=== PATIENT | female | born 1950 | race Caucasian/White ===

== ENCOUNTER → 2024-01-20 11:51 | Outpatient (REF) | payer MEDICARE, BC, SELFPAY | LOC: HWWDC 11:51 | PROVIDERS: ATTENDING PHYSICIAN Nurse Practitioner Family; FAMILY PHYSICIAN Internal Medicine | DX: Z12.31 Encounter for screening mammogram for malignant neoplasm of breast (principal) | CPT/HCPCS: 77063; 77067 ==

== ENCOUNTER → 2024-01-31 16:40 | Outpatient (REF) | payer MEDICARE, BC, SELFPAY | LOC: RAD 16:40 | PROVIDERS: ATTENDING PHYSICIAN Family Medicine; OTHER PHYSICIAN Internal Medicine Hematology & Oncology | DX: R79.89 Other specified abnormal findings of blood chemistry (principal); R06.02 Shortness of breath | CPT/HCPCS: 93970 ==

== ENCOUNTER → 2024-02-13 10:27 | Outpatient (REF) | payer MEDICARE, BC, SELFPAY | LOC: HWRCS 10:27 | PROVIDERS: ATTENDING PHYSICIAN Family Medicine | DX: R01.1 Cardiac murmur, unspecified (principal); M79.89 Other specified soft tissue disorders | CPT/HCPCS: 93005; 93306 ==

== ENCOUNTER 2024-09-03 07:56 | Emergency (ER) | payer MEDICARE, BC, SELFPAY ==
[2024-09-03] VITALS (7 sets, daily range): BP systolic 115–130; BP diastolic 70–83; BMI 25.8
--- NOTE | 2024-09-03 08:00 | ED.GENMED ---
History of Present Illness
General
Chief Complaint: Back Pain
Source: patient and ambulance crew
Exam Limitations: none
Time Seen by Provider: 09/03/24 07:59
History of Present Illness
History of Present Illness:
See MDM
Past History
Past History
ED Past Medical History: Cancer (lung) and HTN
ED Past Surgical History: Gynecological
Social History
Tobacco: Non-smoker
Alcohol: None
Phy Exam
Physical Exam
Physical Exam:
See MDM
Course
Orders/Labs/Results
Orders:
Orders
09/03/24 07:59
Diazepam [Valium] 5 mg PO NOW STA
09/03/24 08:00
CT Abd/pel Without Iv Or Oral Urgent
Comment:
Reason For Exam: left flank pain
Urinalysis Reflex To Culture Urgent
09/03/24 08:50
CT Chest With Iv Contrast Urgent
Comment:
Reason For Exam: flank pain, eval pleural effusion
Morphine Sulfate 4 mg IV NOW STA
09/03/24 09:05
Complete Blood Count/With Diff Urgent
Comprehensive Metabolic Panel Urgent
Manual Differential Urgent
09/03/24 10:35
Morphine Sulfate 4 mg IV NOW STA
09/03/24 12:03
Oxycodone/Acetaminophen [Percocet 5/325] 1 tablet PO NOW STA
Abnormal Lab Results
09/03/24
09:05
WBC 20.0 H 10^3/uL
(4.8-10.8)
RBC 3.88 L 10^6/uL
(4.20-5.40)
MCH 32.7 H pg
(27.0-31.0)
RDW 17.0 H %
(11.5-14.5)
Abs Neuts (Manual) 11.4 H 10^3/uL
(1.4-6.5)
Glucose 114 H mg/dl
(70-99)
09/03/24 09:05
09/03/24 09:05
Vital Signs
Initial and Last Documented VS:
Initial Vital Signs
BP Pulse Ox
128/83 98
09/03/24 08:03 09/03/24 08:03
Last Documented Vital Signs
Temp Pulse Resp BP Pulse Ox
98.0 F 82 18 118/70 95
09/03/24 08:04 09/03/24 08:04 09/03/24 08:04 09/03/24 10:38 09/03/24 10:38
MDM/Problems Addressed
Differential Diagnosis Includes:
HPI and MDM Narrative:
73-year-old female presenting with left flank pain. Patient states she was diagnosed with a muscle spasm and her PCP prescribed muscle relaxants. This has been getting worse over the past 24 hours or so. Per patient, her PCP was urging her to get
x-rays. Patient states the muscle relaxant is not helping. EMS stating that patient was able to ambulate on scene. Patient denies radiation into her legs. She denies abdominal pain. Although exam is consistent with likely spasm, will obtain CT
to rule out any sort of kidney stone or other intra-abdominal pathology. Patient given oral Valium
Physical exam
General: Mildly uncomfortable
HEENT: protecting airway
Neck: appears supple
CV: No evidence of cyanosis
Resp: No accessory muscle use
Abd: Non-distended and nontender
Back: Spastic musculature to left paralumbar musculature. No rash
Extremities: No deformities
Neuro: alert
Psych: Normal affect
Skin: Intact
Problems Addressed including Acute and Chronic Conditions affecting care:
1. Left flank
Acuity: acute
Prognosis: stable
Details: Likely in the setting of spasm. Will give Valium given that her muscle relaxants at home were not helping. Will obtain CT to rule out intra-abdominal pathology
Updates
CT abdomen/pelvis shows no acute abnormalities to explain her pain. However, there was concern for empyema. CT chest was performed showing pleural thickening. Although infection cannot be ruled out, patient does have a history of lung cancer and
daughter is at bedside state that her pleural effusion is chronic. She has a white blood cell count elevation but is afebrile. Family states that she does get Neupogen shots during chemo. I do doubt empyema given no fevers and her immunocompromise
state. Family does agree with this assessment and also indicated that they no longer want thoracentesis. She has had them multiple times before and were told that she has loculations that cannot be drained
Differential Diagnosis (but not limited to): Kidney stone, muscle spasm, sciatica
Testing considered: Lumbar x-rays
Drug therapy (if applicable): OTC meds, please see d/c instruction regarding Rx drugs
Amount and/or Complexity of Data Reviewed
Clinical info obtained from: Patient. Daughters at bedside indicate history of chronic pleural effusion due to active lung cancer
External data reviewed: N/A
Labs I independently reviewed (but not limited to): Leukocytosis
Radiology: The CT scan was personally and independently reviewed. In addition, official CT report reviewed.
Pulse Ox: not hypoxic
EKG independently reviewed: N/A
Cable Ferryboat Operator: N/A
Critical Care: N/A
Risk of Complication:
Social Determinants of health: Good social support
Discussed with other providers: N/A
Escalation of Care includes Admit/Obs: After being observed in the Emergency Department, pt stable for discharge.
Occasional wrong word or 'sound a like' substitutions may have occurred due to the inherent limitations of voice recognition software. Read the chart carefully and recognize, using context, where substitutions have occurred.
*Critical Care Note
Total Time (30-74mins, 75-104mins- exclusive of procedures): Not Applicable
ED Attending Note
-
Portions of this chart may have been created with voice recognition software.� Occasional wrong word or��sound alike� substitutions may have occurred due to the inherent limitations of voice recognition software.
Discharge Plan
Departure
Patient Disposition: Home (Routine Discharge)
Date of Disposition: 09/03/24
Time of Disposition: 12:05
Patient with high blood pressure during this ER visit?: No
Discharge Problem:
Back pain, Pleural effusion
Prescriptions:
New
ondansetron 4 mg Tablet,Disintegrating
4 mg PO BIDPRN PRN (Reason: nausea/vomiting) Qty: 10 0RF
oxycodone 5 mg tablet
5 mg PO Q8H PRN (Reason: Pain) Qty: 14 0RF
No Action
spironolactone 25 mg Tablet
25 mg PO DAILY
metoprolol tartrate 25 mg Tablet
25 mg PO DAILY
Patient Comments:
Pt takes at night
alprazolam [Xanax] 0.5 mg Tablet
0.5 mg PO HS PRN (Reason: anxitey )
Referrals:
Lesly Chavez DO [Family Provider] -
Activity Restrictions/Additional Instructions:
Please return for any worsening symptoms.
You may return at any time if you have further concerns.
Please follow up with your doctor at the first available appointment, preferably this week.
You were given a prescription for narcotics. If you require this pain medicine, please take a daily [id number] stool softener to avoid constipation.
Thank you for choosing [facility].
Interventions
Interventions:
*Risk Screen - Suicide Last Done: 09/03/24 08:09
*General Assessment Last Done: 09/03/24 08:09
*Neglect/Abuse Screening Last Done: 09/03/24 08:09
*ED COVID-19 Vaccine History Last Done: 09/03/24 08:04
ED-Musculoskeletal Assessment Last Done: 09/03/24 08:32
Discharge Date and Time
Print Language: LUXEMBOURGISH
[2024-09-03] MEDS: VALIUM 5 MG PO (08:08)
[2024-09-03] MEDS: MORPHINE SULFATE 4 MG IV ×2 (09:05→10:42)
[2024-09-03 09:28] LABS: ALT (SGPT) 15 U/L (0-35); AST (SGOT) 20 U/L (14-36); Albumin 3.7 g/dl (3.5-5.0); Alkaline Phosphatase 90 U/L (38-126); Blood Urea Nitrogen 13 mg/dl (7-17); Calcium 9.3 mg/dl (8.4-10.2); Carbon Dioxide 30 mmol/L (22-30); Chloride 103 mmol/L (98-107); Estimated Creatinine Clearance 82 ml/min; Glucose 114 mg/dl (70-99); Potassium 4.6 mmol/L (3.5-5.1); Sodium 138 mmol/L (135-145); Total Bilirubin 0.2 mg/dl (0.2-1.3); Total Protein 7.1 g/dl (6.3-8.2); eGFR > 60.00
[2024-09-03 09:43] LABS: Hematocrit 38.1 % (37.0-47.0); Hemoglobin 12.7 g/dL (12.0-16.0); Mean Corp Hgb Conc. 33.3 g/dL (33.0-37.0); Mean Corpuscular Hgb 32.7 pg (27.0-31.0); Mean Corpuscular Volume 98.2 fL (81.0-99.0); Mean Platelet Volume 9.4 fL (7.4-10.4); Platelet Count 214 10^3/uL (130-400); Red Blood Cell Count 3.88 10^6/uL (4.20-5.40)
[2024-09-03 10:15] LABS: Absolute Neutrophils -Man Diff 11.4 10^3/uL (1.4-6.5); Band Neutrophils 2 % (0-3); Eosinophils 6 % (0-6); Lymphocytes 31 % (20-51); Monocytes 6 % (2-9); Segmented Neutrophils 55 % (42-75)
[2024-09-03 10:16] LABS: Normal RBC Morphology Yes; Platelets Checked Yes; Total Cells Counted 100
== END 2024-09-03 12:42 | disposition home or self-care (01) ==
LOC: EMR 07:56
PROVIDERS: EMERGENCY PHYSICIAN Student in an Organized Health Care Education/Training Program; FAMILY PHYSICIAN Family Medicine
DX: J90 Pleural effusion, not elsewhere classified (principal); M54.9 Dorsalgia, unspecified; I10 Essential (primary) hypertension
CPT/HCPCS: 99284; 96374; 96376; 71260; 74176; 80053; 85025; Q9967

== ENCOUNTER 2024-09-22 12:11 | Inpatient (IN) | payer MEDICARE, BC, SELFPAY ==
[2024-09-22] VITALS (11 sets, daily range): BP systolic 103–154; BP diastolic 63–97; BMI 24.8; BMI 24.6
--- NOTE | 2024-09-22 08:23 | ED.GENMED ---
History of Present Illness
<Shelia Floyd, VERTICAL PUNCH OPERATOR - Last Filed: 09/22/24 15:52>
General
Chief Complaint: Breathing Problem
Source: patient and family (daughter at bedside)
Exam Limitations: none
Time Seen by Provider: 09/22/24 08:22
Nursing documentation reviewed up to this point in time: agreed with
History of Present Illness
History of Present Illness:
73-year-old female with history of lung cancer currently receiving chemotherapy at [facility], hx lung scarring from radiation/chemo/immunotherapy, HTN, hysterectomy UTIs, anxiety, lung resection, presents for 3 days of worsening SOB and cough, today
fever 102 at home. Denies n/v/d/c.
Daughters arrived: Pt last Tylenol was last night. Pt saw PCP Dr. Chavez 2 days ago and put on Doxycycline 100 mg BID, for bronchitis, has had total 5 doses.
One week ago pt oncologist put her on Dexamethasone 8 mg daily x 1 week for gout left MCP joint, then decreased it to 4 mg daily which she took for 2 days, then stopped it at request of PCP. Last dose was 2 days ago
Thumb joint pain is improved.
Past History
<Shelia Floyd, VERTICAL PUNCH OPERATOR - Last Filed: 09/22/24 15:52>
Past History
ED Past Medical History: Cancer (lung) and HTN
ED Past Surgical History: Gynecological
Social History
Tobacco: Non-smoker
Alcohol: None
Review of Systems
<Shelia Floyd, VERTICAL PUNCH OPERATOR - Last Filed: 09/22/24 15:52>
Review of Systems
Allergies reviewed?: Yes
All Other Systems: ROS reviewed and negative except as documented in HPI and ROS
Constitutional: Reports fever and fatigue
Respiratory: Reports cough and trouble breathing
Cardiac: Denies chest pain
ABD/GI: Denies abdominal pain, nausea, vomiting or diarrhea
: Denies dysuria, frequency, flank pain or difficulty voiding
Musculoskeletal: Denies edema
Skin: Reports no symptoms
Neurological: Reports no symptoms
Phy Exam
<Shelia Floyd, VERTICAL PUNCH OPERATOR - Last Filed: 09/22/24 15:52>
Physical Exam
Physical Exam:
GENERAL: No acute distress. A&Ox3.
CONSTITUTIONAL: Temp 102.2
EYES: clear, conjunctivae normal
ENMT: moist mucus membranes, Pharynx nl
RESPIRATORY: Regular respirations, nonlabored, lungs with rhonchi throughout, persistent coarse junky cough
CARDIOVASCULAR: Regular rate and rhythm, no murmurs, no rubs.
GI: Soft, nontender, normal BS
MUSCULOSKELETAL: Moves with ease. Well perfused.
SKIN: Warm, dry, pink
PSYCH: Normal mood and affect. Well kept, interactive and appropriate
NEUROLOGIC: Awake, alert and oriented. No focal neurological deficits
Scores
<Shelia Floyd, VERTICAL PUNCH OPERATOR - Last Filed: 09/22/24 15:52>
Heart Failure Risk
Heart Failure Risk Score: Not Applicable
Sepsis
<Shelia Floyd, VERTICAL PUNCH OPERATOR - Last Filed: 09/22/24 15:52>
Sepsis Screening
Sepsis Assessment: Sepsis
Sepsis Screen
Sepsis Screen: Sepsis
Date: 09/22/24
Time: 15:52
Course
<Shelia Floyd, VERTICAL PUNCH OPERATOR - Last Filed: 09/22/24 15:52>
Orders/Labs/Results
Orders:
Orders
09/22/24 08:31
CR Chest - 2 Views Urgent
Comment:
Reason For Exam: lung CA, cough fever
09/22/24 08:32
Ipratropium/Albuterol Sulfate [Duoneb] 3 ml INH R NOW STA
Ketorolac [Toradol] 15 mg IV NOW STA
09/22/24 08:33
Electrocardiogram (*1) Urgent
Reason for Study: Shortness of Breath
EKG- Treatment ONCE
09/22/24 08:35
0.9% Sodium Chloride 1000 ml [Nss] 1,000 ml IV BOLUS
09/22/24 08:38
Complete Blood Count/With Diff Urgent
Comprehensive Metabolic Panel Urgent
Lactic Acid Q4H
Comment: CANCEL 2nd LACTIC ACID IF 1st LACTIC ACID IS LESS THAN 2
Manual Differential Urgent
NT-proBNP Urgent
Troponin I Urgent
09/22/24 08:39
Blood Culture Q30M
DEANNA Source: Blood/Venous
Specimen Description:
09/22/24 08:43
Acetaminophen [Tylenol] 1,000 mg PO NOW STA
09/22/24 08:53
COVID-19 Antigen Urgent
Source: Nasal Swab
Blood Culture Q30M
DEANNA Source: Blood/Venous
Specimen Description:
Influenza A+B Rapid Molecular Urgent
DEANNA Source: Nasal Swab
Specimen Description:
09/22/24 10:26
Cefepime HCl [Maxipime] 2,000 mg IV NOW STA
09/22/24 10:28
Vancomycin [Vancocin] 2,000 mg 0.9% Sodium Chloride 500 ml [Nss] 500 ml IV NOW
09/22/24 11:11
CT Chest PE Study Stat
Comment:
Reason For Exam: hypoxic fever, hx of lung ca, eval PE vs post obst
09/22/24 11:12
Sputum Culture [Respiratory Culture/Gram Stain] Stat
DEANNA Source: Sputum
Specimen Description:
Date Specimen was Collected: 09/22/24
Time Specimen was Collected: 12:04
Rx Incentive Spirometry [RESP] Routine
Frequency: q1h while awake
Rx Pep / Acapela [RESP] Routine
09/22/24 11:34
Admit/Transfer Patient As Directed
Co-Sign Provider:
Level of Care: Inpatient admission
Assign to:: Telemetry
Physician / Group: Dinesh Rolon
Diagnosis: pneumonia
Reason for Telemetry: Other
Other Reason for Telemetry: sepsis
Date to Stop Telemetry: 09/24/24
Time to Stop Telemetry: 11:00
Reason for Hospitalization: pna, sepsis, requiring o2
Expected length of stay greater than two midnights?: Yes
ELOS- Estimated Length of Stay in days: 2
I certify the patient meets the requirements for IP care: Yes
PRN Pain Medication Management As Directed
May give lesser potent ordered pain med per pt: Yes
preference::
Protocol:: Medication orders for pain may be administered in a
manner that supports deferring to patient preference
when the pt is:
- Requesting an ordered lesser potent pain medication.
Least to most potent pain medications are defined
as: acetaminophen < NSAID < tramadol < opioids
(morphine, oxycodone, hydromorphone).
- Requesting a lesser dose of the same medication IF
ORDERED.
- Requesting a less intrusive route of administration
if both routes are prescribed by the provider (PO <
IV).
09/22/24 11:38
Code Status As Directed
Resuscitation Status: Do not resuscitate
Reached after discussion with pt or family/Healthcare POA: Yes
09/22/24 11:39
DNR Bracelet Application ONCE
09/22/24 11:41
Levalbuterol [Xopenex 1.25 mg Inhalant Solution] 1.25 mg INH R Q6HPRN PRN
Promethazine/Codeine [Phenergan with Codeine Syrup] 5 ml PO Q4HPRN PRN
09/22/24 12:05
Legionella Urinary Antigen Stat
DEANNA Source: Urine
Specimen Description:
Sputum Culture [Respiratory Culture/Gram Stain] Urgent
DEANNA Source: Sputum
Specimen Description:
Date Specimen was Collected: 09/22/24
Time Specimen was Collected: 11:16
Strep pneumoniae Antigen Stat
DEANNA Source: Urine
Specimen Description:
09/22/24 14:00
Piperacillin/Tazo 3.375 Gram [Zosyn] 3.375 gram in 50 ml IV Q6H
09/24/24 11:00
DC Protocol for Telemetry ONCE
Abnormal Lab Results
09/22/24
08:38
WBC 26.9 H 10^3/uL
(4.8-10.8)
RBC 3.71 L 10^6/uL
(4.20-5.40)
Hct 36.0 L %
(37.0-47.0)
MCH 33.2 H pg
(27.0-31.0)
RDW 16.8 H %
(11.5-14.5)
Segmented Neutrophils 9 L %
(42-75)
Monocytes (Manual) 60 H %
(2-9)
Sodium 131 L mmol/L
(135-145)
Chloride 95 L mmol/L
(98-107)
Glucose 118 H mg/dl
(70-99)
09/22/24 08:38
09/22/24 08:38
Vital Signs
Initial and Last Documented VS:
Initial Vital Signs
Temp Pulse Resp BP Pulse Ox
102.2 F H 114 30 140/93 93
09/22/24 08:15 09/22/24 08:15 09/22/24 08:15 09/22/24 08:15 09/22/24 08:15
Last Documented Vital Signs
Temp Pulse Resp BP Pulse Ox
102.2 F H 114 25 133/82 95
09/22/24 14:45 09/22/24 12:53 09/22/24 12:53 09/22/24 09:01 09/22/24 12:53
Floor Winder consulted with Physician
Floor Winder consulted with physician?: Yes
Name of Physician Consulted: Thee
<Alistair Kingston MD - Last Filed: 09/22/24 10:33>
Orders/Labs/Results
Orders:
Orders
09/22/24 08:31
CR Chest - 2 Views Urgent
Comment:
Reason For Exam: lung CA, cough fever
09/22/24 08:32
Ipratropium/Albuterol Sulfate [Duoneb] 3 ml INH R NOW STA
Ketorolac [Toradol] 15 mg IV NOW STA
09/22/24 08:33
Electrocardiogram (*1) Urgent
Reason for Study: Shortness of Breath
EKG- Treatment ONCE
09/22/24 08:35
0.9% Sodium Chloride 1000 ml [Nss] 1,000 ml IV BOLUS
09/22/24 08:38
Complete Blood Count/With Diff Urgent
Comprehensive Metabolic Panel Urgent
Lactic Acid Q4H
Comment: CANCEL 2nd LACTIC ACID IF 1st LACTIC ACID IS LESS THAN 2
Manual Differential Urgent
NT-proBNP Urgent
Troponin I Urgent
09/22/24 08:39
Blood Culture Q30M
DEANNA Source: Blood/Venous
Specimen Description:
09/22/24 08:43
Acetaminophen [Tylenol] 1,000 mg PO NOW STA
09/22/24 08:53
COVID-19 Antigen Urgent
Source: Nasal Swab
Blood Culture Q30M
DEANNA Source: Blood/Venous
Specimen Description:
Influenza A+B Rapid Molecular Urgent
DEANNA Source: Nasal Swab
Specimen Description:
09/22/24 10:26
Cefepime HCl [Maxipime] 2,000 mg IV NOW STA
09/22/24 10:28
Vancomycin [Vancocin] 2,000 mg 0.9% Sodium Chloride 500 ml [Nss] 500 ml IV NOW
09/22/24 11:11
CT Chest PE Study Stat
Comment:
Reason For Exam: hypoxic fever, hx of lung ca, eval PE vs post obst
09/22/24 11:12
Sputum Culture [Respiratory Culture/Gram Stain] Stat
DEANNA Source: Sputum
Specimen Description:
Date Specimen was Collected: 09/22/24
Time Specimen was Collected: 12:04
Rx Incentive Spirometry [RESP] Routine
Frequency: q1h while awake
Rx Pep / Acapela [RESP] Routine
09/22/24 11:34
Admit/Transfer Patient As Directed
Co-Sign Provider:
Level of Care: Inpatient admission
Assign to:: Telemetry
Physician / Group: Dinesh Rolon
Diagnosis: pneumonia
Reason for Telemetry: Other
Other Reason for Telemetry: sepsis
Date to Stop Telemetry: 09/24/24
Time to Stop Telemetry: 11:00
Reason for Hospitalization: pna, sepsis, requiring o2
Expected length of stay greater than two midnights?: Yes
ELOS- Estimated Length of Stay in days: 2
I certify the patient meets the requirements for IP care: Yes
PRN Pain Medication Management As Directed
May give lesser potent ordered pain med per pt: Yes
preference::
Protocol:: Medication orders for pain may be administered in a
manner that supports deferring to patient preference
when the pt is:
- Requesting an ordered lesser potent pain medication.
Least to most potent pain medications are defined
as: acetaminophen < NSAID < tramadol < opioids
(morphine, oxycodone, hydromorphone).
- Requesting a lesser dose of the same medication IF
ORDERED.
- Requesting a less intrusive route of administration
if both routes are prescribed by the provider (PO <
IV).
09/22/24 11:38
Code Status As Directed
Resuscitation Status: Do not resuscitate
Reached after discussion with pt or family/Healthcare POA: Yes
09/22/24 11:39
DNR Bracelet Application ONCE
09/22/24 11:41
Levalbuterol [Xopenex 1.25 mg Inhalant Solution] 1.25 mg INH R Q6HPRN PRN
Promethazine/Codeine [Phenergan with Codeine Syrup] 5 ml PO Q4HPRN PRN
09/22/24 12:05
Legionella Urinary Antigen Stat
DEANNA Source: Urine
Specimen Description:
Sputum Culture [Respiratory Culture/Gram Stain] Urgent
DEANNA Source: Sputum
Specimen Description:
Date Specimen was Collected: 09/22/24
Time Specimen was Collected: 11:16
Strep pneumoniae Antigen Stat
DEANNA Source: Urine
Specimen Description:
09/22/24 14:00
Piperacillin/Tazo 3.375 Gram [Zosyn] 3.375 gram in 50 ml IV Q6H
09/24/24 11:00
DC Protocol for Telemetry ONCE
Abnormal Lab Results
09/22/24
08:38
WBC 26.9 H 10^3/uL
(4.8-10.8)
RBC 3.71 L 10^6/uL
(4.20-5.40)
Hct 36.0 L %
(37.0-47.0)
MCH 33.2 H pg
(27.0-31.0)
RDW 16.8 H %
(11.5-14.5)
Segmented Neutrophils 9 L %
(42-75)
Monocytes (Manual) 60 H %
(2-9)
Sodium 131 L mmol/L
(135-145)
Chloride 95 L mmol/L
(98-107)
Glucose 118 H mg/dl
(70-99)
09/22/24 08:38
09/22/24 08:38
Vital Signs
Initial and Last Documented VS:
Initial Vital Signs
Temp Pulse Resp BP Pulse Ox
102.2 F H 114 30 140/93 93
09/22/24 08:15 09/22/24 08:15 09/22/24 08:15 09/22/24 08:15 09/22/24 08:15
Last Documented Vital Signs
Temp Pulse Resp BP Pulse Ox
102.2 F H 114 25 133/82 95
09/22/24 14:45 09/22/24 12:53 09/22/24 12:53 09/22/24 09:01 09/22/24 12:53
<Shelia Floyd, VERTICAL PUNCH OPERATOR - Last Filed: 09/22/24 15:52>
MDM/Problems Addressed
Differential Diagnosis Includes:
PNA, CHF, SIRS, progression of lung CA
MDM/Problems Addressed:
73-year-old female with history of lung cancer currently receiving chemotherapy at [facility], hx lung scarring from radiation/chemo/immunotherapy, on home O2 PRN, has been using constantly past few days, HTN, hysterectomy UTIs, anxiety, lung
resection, presents for 3 days of worsening SOB and cough, today fever 102 at home. Denies n/v/d/c.
Daughters arrived: Pt last Tylenol was last night. Pt saw PCP Dr. Chavez 2 days ago and put on Doxycycline 100 mg BID for bronchitis, has had total 5 doses.
One week ago pt oncologist put her on Dexamethasone 8 mg daily x 1 week for gout left MCP joint, then decreased it to 4 mg daily which she took for 2 days, then stopped it at request of PCP. Last dose was 2 days ago
Thumb joint pain is improved.
Temp 102.2 po, HR 114, Pulse ox 94% on 4L [place]
9:45 AM:
CBC: WBC 26.9 (pt was on steroids for 10 days up until 2 days ago)
CMP: No clinically significant abnormality
COVID-negative
Flu negative
Troponin within normal limits
BNP WNL
10:25 a.m.
Chest x-ray radiology report read: FINDINGS:
Left perihilar opacity most in keeping with the patient's known lung cancer. Small left pleural effusion with adjacent left basilar parenchymal opacity. No pneumothorax. The cardiomediastinal silhouette is stable. Stable chronic compression
fractures of the midthoracic spine.
Plan: Admit: Lung cancer, pneumonia, left pleural effusion, failing outpatient antibiotics, SIRS
Blood cultures pending
Case discussed with Dr. Kingston who examined patient and agrees with plan
Hospitalist notified of admission
<Shelia Floyd VERTICAL PUNCH OPERATOR - Last Filed: 09/22/24 15:52>
*Critical Care Note
Total Time (30-74mins, 75-104mins- exclusive of procedures): Not Applicable
ED Attending Note
<Shelia Floyd VERTICAL PUNCH OPERATOR - Last Filed: 09/22/24 15:52>
-
Portions of this chart may have been created with voice recognition software.� Occasional wrong word or��sound alike� substitutions may have occurred due to the inherent limitations of voice recognition software.
<Alistair Kingston MD - Last Filed: 09/22/24 10:33>
ED Attending Note
Patient seen and examined by attending physician: Yes
ED Attending Note:
I have seen and evaluated the patient with a [id number] encounter. I have spoken to the advance practicer provider and involved in the medical history, the physical exam, medical decision making.
Evaluation and management service: agree unless noted differently below.
Results interpretation: agree unless noted differently below.
Focused HPI: 73-year-old female with history as noted significant for lung cancer currently receiving chemotherapy at [facility] who presents to the ER for worsening cough and shortness of breath. She says she has been coughing and having increasing
shortness of breath over the past 3 to 4 days. She says cough is productive of white to yellow sputum. She has associated fever and chills. She has been on doxycycline prescribed as an outpatient for the past few days but has not noticed any
improvement and so came to the ER.
Physical exam: Tachycardic, tachypneic, febrile; she is on 2 L of oxygen�wears as needed oxygen at home. Saturation 94%. Normotensive. She has scattered wheezing, diminished at the lung bases.
Medical Decision Makin-year-old female presents for evaluation of worsening cough and shortness of breath, fever in the setting of recent treatment for lung cancer. Not improving with outpatient doxycycline. Vitals and exam as above. Her
labs were significant for leukocytosis to 26.9. CMP no clinically significant abnormalities. Blood culture sent off. Will send sputum cultures. COVID and flu were negative. Chest x-ray was concerning for pneumonia. Treat with antibiotics.
Admit for continued treatment.
Discharge Plan
Departure
Patient Disposition: Admit
Date of Disposition: 09/22/24
Time of Disposition: 10:30
Admit to: Med/Surg
Presentation/result/management discussed w/ accepting MD/DO: Hospitalist
Condition: Fair
Covid-19: Negative COVID-19
Discharge Problem:
Lung cancer, Pneumonia, SIRS (systemic inflammatory response syndrome)
Interventions
Interventions:
*Risk Screen - Suicide Last Done: 09/22/24 08:15
*General Assessment Last Done: 09/22/24 08:15
*Neglect/Abuse Screening Last Done: 09/22/24 08:15
ED- Fall Risk Assessment Last Done: 09/22/24 09:04
*ED COVID-19 Vaccine History Last Done: 09/22/24 08:15
ED- Cardiac Assessment Last Done: 09/22/24 09:04
ED- Pulmonary Assessment Last Done: 09/22/24 09:04
[2024-09-22] MEDS: TYLENOL 1000 MG PO (08:45)
[2024-09-22] MEDS: DUONEB 3 ML INH (08:46)
[2024-09-22] MEDS: NSS 1000 IV (08:50)
[2024-09-22 09:13] LABS: ALT (SGPT) 24 U/L (0-35); AST (SGOT) 21 U/L (14-36); Albumin 3.9 g/dl (3.5-5.0); Alkaline Phosphatase 84 U/L (38-126); Blood Urea Nitrogen 15 mg/dl (7-17); Calcium 9.4 mg/dl (8.4-10.2); Carbon Dioxide 27 mmol/L (22-30); Chloride 95 mmol/L (98-107); Estimated Creatinine Clearance 82 ml/min; Glucose 118 mg/dl (70-99); Potassium 4.3 mmol/L (3.5-5.1); Sodium 131 mmol/L (135-145); Total Bilirubin 0.5 mg/dl (0.2-1.3); Total Protein 6.9 g/dl (6.3-8.2); eGFR > 60.00
[2024-09-22 09:18] LABS: Lactic Acid 1.7 mmol/L (0.7-2.0)
[2024-09-22 09:26] LABS: NT-proBNP 431 pg/ml; Troponin I < 0.012 ng/ml
[2024-09-22 09:27] LABS: COVID-19 Antigen Negative (Negative)
[2024-09-22 09:50] LABS: Hemoglobin 12.3 g/dL (12.0-16.0); Mean Corp Hgb Conc. 34.2 g/dL (33.0-37.0); Mean Corpuscular Hgb 33.2 pg (27.0-31.0); Mean Platelet Volume 9.3 fL (7.4-10.4); Platelet Count 188 10^3/uL (130-400); Red Blood Cell Count 3.71 10^6/uL (4.20-5.40); Red Cell Dist. Width 16.8 % (11.5-14.5); White Blood Cell Count 26.9 10^3/uL (4.8-10.8)
[2024-09-22 10:21] LABS: Absolute Neutrophils -Man Diff 2.6 10^3/uL (1.4-6.5); Atypical Lymphocytes 1 %; Band Neutrophils 1 % (0-3); Lymphocytes 26 % (20-51); Metamyelocytes 3 % (-); Monocytes 60 % (2-9); Platelets Checked Yes; Segmented Neutrophils 9 % (42-75)
[2024-09-22 10:22] LABS: Normal RBC Morphology Yes; Total Cells Counted 100
[2024-09-22] MEDS: MAXIPIME 2000 MG IV (10:38)
[2024-09-22] MEDS: VANCOCIN 540 MG IV (10:57)
--- NOTE | 2024-09-22 12:28 | PHA.VAN.IN ---
Assessment
- Assessment
Renal Function: Unknown baseline
Maximum Temperature: 102.2
Concomitant Antimicrobials: Piperacillin-tazobactam
AUC Dosing Plan
- Dosing Variables
Dosing Weight (kg): 73.9
Dosing CrCl (ml/min): 82
Vd coefficient (L/kg): 0.7
- Empiric Dosing
Initial / Loading Dose: Vanc 2000mg--3 at 1057
Maintenance Regimen: Vanc 1000mg IV x36J--gsejs at 1800
Estimated AUC (mcg*h/mL): 552.91
Estimated Peak (mcg*h/mL): 33.28
Estimated Trough (mcg/ml): 15
Estimated Half Life (H): 9.5
- Monitoring
No levels ordered at this time: Consider levels after 09/23 1800 dose
Pharmacokinetics Vancomycin I
- -
Patient Age: 73
Patient Sex: Female
Vancomycin Day #: 1
Indication: Pulmonary/Respiratory
Requesting Provider: Gonzales
Height / Weight:
Height 5 ft 8 in
Actual Weight 73.9 kg
IBW in k.9
Adjusted BW in k.9
Pertinent Past Medical History: Hx of lung CA; Chemo [place]; outpt Doxy 100mg bid--5 doses
- Vital Signs / Lab Results
Temp Pulse Resp BP Pulse Ox
102.2 F H 122 29 133/82 95
09/22/24 08:15 09/22/24 09:30 09/22/24 09:30 09/22/24 09:01 09/22/24 09:30
Lab Results - Hematology
09/22/24
08:38
WBC 26.9 H
Band Neutrophils 1
Lab Results - Chemistry
09/22/24
08:38
BUN 15
Creatinine 0.6
Estimated Creat Clear 82
Albumin 3.9
09/22/24 09/22/24
08:38 12:45
Lactic Acid 1.7 Cancelled
Microbiology Results
09/22/24 12:05 Legionella Urinary Antigen - Final
Urine Negative for Legionella pneumophila Serogroup 1 antigen.
A negative result does not rule out the possiblity of
Legionella infection due to other serogroups or species of
Legionella. Clinical correlation is recommended.
Streptococcus pneumoniae Antigen (M - Final
Negative for Streptococcus pneumoniae antigen.
A negative result does not exclude infection with
Streptococcus pneumoniae. Clinical correlation is
recommended.
09/22/24 08:53 Influenza Types A & B (LUIS) - Final
Nasal Swab Negative for Influenza A & B, NAAT
Negative results must be combined with clinical observations
and patient history.
Nucleic Acid Amplification test (NAAT)performed on the
[employer] platform.
[2024-09-22] MEDS: PHENERGAN WITH CODEINE SYRUP 5 ML PO ×2 (12:35→23:32)
[2024-09-22] MEDS: MOTRIN 400 MG PO (13:43)
--- NOTE | 2024-09-22 13:57 | HPS.HSE ---
Family Physician
-
Family Physician: Lesly Chavez
Chief Complaint
-
sob, cough
History of Present Illness
73 female history of lung cancer undergoing active chemotherapy at [facility] with known history of lung scarring (uses home o2 intermittently) from radiation/chemo/immunotherapy who presents with a 3-day history of worsening shortness of breath
cough fever of 102. States that the cough has become so bad it does not let her sleep has affected her eating. It is a wet chesty cough however she is not able to bring it up. Should be noted she has been on doxycycline 100 mg twice a day for the
past 4 days for treatment of bronchitis.
Former smoker, does not drink alcohol no drug use history
Past medical history as above
Past surgical history hysterectomy, lung resection
-Continue PPI
Medical History
Past Medical History
Past Medical History: Reports Cancer
Past Surgical History: Reports Gynocological
Social History
Unable to obtain full social history at this time due to: Other
Tobacco: Former Smoker
Alcohol: None
Drug: None
Family History
Family History: Not pertinent
Allergies / Home Medications
Allergies reflects when Allergies were last updated in [facility].
Home Medications with original date entered in [facility]
Allergy/Medication List:
Allergies
Allergy/AdvReac Type Severity Reaction Status Date / Time
No Known Allergies Allergy Verified 05/07/23 18:15
Home Medications
spironolactone 25 mg tablet 50 mg PO HS Blood Pressure 05/07/23
ondansetron 4 mg disintegrating tablet 4 mg PO BIDPRN PRN nausea/vomiting #10 tabs 09/03/24
doxycycline hyclate 100 mg capsule 100 mg PO BID 09/22/24
famotidine 20 mg tablet (Pepcid) 20 mg PO DAILYPRN PRN gerd 09/22/24
folic acid 1 mg tablet 1 mg PO DAILY 03/01/25
metoprolol succinate 25 mg tablet,extended release 24 hr (Toprol XL) 25 mg PO HS 09/22/24
Review of Systems
-
A 12 point ROS was completed and negative except as noted: Yes
Physical Exam
Vital Signs
Vital Signs
Temp Pulse Resp BP Pulse Ox
101.9 F H 114 25 133/82 95
09/22/24 12:56 09/22/24 12:53 09/22/24 12:53 09/22/24 09:01 09/22/24 12:53
Physical Exam
General: Well Developed
Laboratory Results
-
09/22/24 08:38
09/22/24 08:38
Laboratory Results
Lactic Acid Cancelled 09/22/24 12:45
Total Bilirubin 0.5 mg/dl (0.2-1.3) 09/22/24 08:38
AST 21 U/L (14-36) 09/22/24 08:38
ALT 24 U/L (0-35) 09/22/24 08:38
Alkaline Phosphatase 84 U/L (38-126) 09/22/24 08:38
Troponin I < 0.012 ng/ml 09/22/24 08:38
Impression/Plan
-
NAD
Scleral Anicteric
MMM
No JVD
Diminished breath sounds left lower base. Rhonchi worse on the left side than the right side, right apical clear
Regular but tachycardic, S1/S2
Soft, NT, ND, BS+
Warm, Dry
AAOx3
Acute on chronic respiratory failure likely secondary to sepsis from pneumonia. Question as this is a postobstructive pneumonia or empyema/parapneumonic effusion. If failed outpatient antibiotic therapy with doxycycline.
-Wean oxygen as tolerated
-Acapella
-Incentive spirometer
-Sputum cx
-Legionella/Strep pneumo
-Antitussive (Prometh with Codine)
-Mucinex
-Vancomycin Zosyn in order to cover for anaerobic coverage
-CT PE study ordered
-Bcx ordered
-Monitor on tele
Left sided pleural effusion
-?Tap, but daughter has stated it has been there for some time
-Consult IR for potential dx thora
Lung Ca
-Outpatient Onc follow up
HTN
-Continue antihypertensive
Gerd
-PPI
DNR/DNI
[2024-09-22] MEDS: MAALOX PLUS 1 TABLET PO (13:58)
--- NOTE | 2024-09-22 14:07 | EDRN ---
Communicated with dr. Rolon via [facility] [facility]. Pt's family concerned about pt's condition not improving even after multiple attempts with medications to help with cough and reflux. Dr. Rolon is aware that the family would like to have someone go over
the ct scan results. Pulmonary and ID were also consulted.
[2024-09-22] MEDS: TYLENOL 650 MG PO (14:24)
[2024-09-22] MEDS: MUCINEX 600 MG PO ×2 (14:26→20:12)
[2024-09-22] MEDS: ZOSYN 50 IV ×2 (14:37→21:32)
--- NOTE | 2024-09-22 17:33 | CON.PUL ---
Consultation
Consultation Request
Date/Time Consultation Requested: 09/22/2024 - 1353
Date/Time Consultation Performed: 09/22/2024 - 1520
Requesting Provider: Dr. Rolon
Performing Provider: Dr. Sanchez
Reason for Consultation: Pleural effusion/Fever/SOB
Medical History
-
Chief Complaint: Shortness of breath + cough
History of Present Illness:
73-year-old female with a past medical history of metastatic lung cancer on chemotherapy who presents with worsening cough and shortness of breath. Patient is currently on antibiotics for bronchitis but is not improving. She is currently being
treated for her lung cancer at [facility]. She was recently here in the ER on 09/03/2024 due to back/left flank pain. White count that time was 20. She was afebrile at that time. Patient thought it was a muscle spasm, and that is
when she was diagnosed with. She was given Valium, and given a prescription for Zofran + oxycodone. CT chest obtained on 09/03/2024 showed abnormal soft tissue attenuation thickening in the left upper lobe/left lower lobe with a 1.5 cm left upper
lobe nodule, all of this correlating with her history of lung cancer with history of XRT. There also was a left basilar pleural effusion with surrounding pleural thickening which was previously seen on an abdominal CT from the same day. Infected
fluid collection was unable to be excluded at the time. She is now having worsening shortness of breath and cough. Has some middle chest tightness and feels like she gets full very early so it has been affecting her eating. She was in touch with
her physician 2 days prior and was placed onto doxycycline and has taken 5 doses thus far. She had a fever today to 102 �F. She is also having yellow sputum and sometimes dark brown. No recent sick contacts. She was recently on Decadron for gout
with last dose 2 days ago. In the ER she was febrile to 102.2 �F, pulse rate 114, respiratory rate 30, BP 140/93 and saturating 93% on room air. Labs showed leukocytosis to 26.9, 1% bands, serum sodium 131, lactate 1.7, proBNP 431, and COVID-19
antigen negative. Blood cultures were collected, and flu A/B swab was negative. CTA chest was done on 09/22/2024 showing no evidence for an acute PE, with irregular soft tissue encasing the left hilum with a small�moderate size left basilar pleural
effusion with diffuse pleural thickening, similar to prior CT chest from 09/03/2024. In the ER she was given 1 L NS 0.9%, cefepime/vancomycin, DuoNebs and Tylenol. She was admitted to the hospitalist service under telemetry, and pulmonary service
now consulted for additional management/recommendations.
When I saw the patient, she was in bed, on 3 L/min nasal cannula with her daughter, Christina, at bedside. Patient currently does not feel good. She feels tired, has chest discomfort in the middle of her chest, and is short of breath during
activity. She says that her left-sided pleural effusion is chronic and she has had about 16 thoracentesis procedures at [facility]. She is on chemotherapy every 3 weeks, followed by Dr. Denny, at [facility] She originally was diagnosed
with lung cancer about 13 years ago while living in [place]. She moved here to [place] in March 2023, and it seems like her cancer has been worsening since then. She currently denies CHAVEZ, abdominal pain, nausea, or diarrhea.
PMHx: Metastatic lung cancer on active chemotherapy every 3 weeks for approximately the last year (follows at [facility] with a history of XRT/chemotherapy/immunotherapy (originally diagnosed 13 years ago with recurrence approximately 4 years ago),
hypertension, anxiety
PSHx: MAYITO, right upper lobectomy
Past Medical History
Past Medical History: Other (Above as per HPI)
Past Surgical History: Other (Above as per HPI)
Social History
Tobacco: Non-smoker
Alcohol: None
Drug: None
Living: With Family
Employment: Retired
Family History
Family History: Reviewed & Not Pertinent
Allergies / Home Medications
Allergies
Allergy/AdvReac Type Severity Reaction Status Date / Time
No Known Allergies Allergy Verified 10/14/23 18:15
Home Medications
�Medication �Instructions �Recorded �Confirmed �Last Taken �Type
spironolactone 25 mg tablet 50 mg PO HS Blood Pressure 05/07/23 09/22/24 09/21/24 History
ondansetron 4 mg disintegrating 4 mg PO BIDPRN PRN nausea/vomiting 09/03/24 09/22/24 Unknown Rx
tablet #10 tabs
doxycycline hyclate 100 mg capsule 100 mg PO BID 09/22/24 09/22/24 09/22/24 History
famotidine 20 mg tablet (Pepcid) 20 mg PO DAILYPRN PRN gerd 09/22/24 09/22/24 Unknown History
folic acid 1 mg tablet 1 mg PO DAILY 09/22/24 09/22/24 Unknown History
metoprolol succinate 25 mg 25 mg PO HS 09/22/24 09/22/24 09/21/24 History
tablet,extended release 24 hr
(Toprol XL)
Review of Systems
-
History Source: Patient
All other systems: Negative unless noted
Vitals / Labs / Diagnostic Testing
Vital Signs
Temp Pulse Resp BP Pulse Ox
98.2 F 88 20 133/74 96
09/22/24 20:05 09/22/24 20:05 09/22/24 20:05 09/22/24 20:05 09/22/24 20:05
Lab Data
09/22/24 08:38
09/22/24 08:38
Microbiology
09/22/24 12:05 Sputum Gram Stain - Preliminary
09/22/24 12:05 Urine Legionella Urinary Antigen - Final
Negative for Legionella pneumophila Serogroup 1 antigen.
A negative result does not rule out the possiblity of
Legionella infection due to other serogroups or species of
Legionella. Clinical correlation is recommended.
09/22/24 12:05 Urine Streptococcus pneumoniae Antigen (M - Final
Negative for Streptococcus pneumoniae antigen.
A negative result does not exclude infection with
Streptococcus pneumoniae. Clinical correlation is
recommended.
09/22/24 08:53 Nasal Swab Influenza Types A & B (LUIS) - Final
Negative for Influenza A & B, NAAT
Negative results must be combined with clinical observations
and patient history.
Nucleic Acid Amplification test (NAAT)performed on the
[employer] platform.
Diagnostic Testing:
Physical Exam
-
HEENT: Normocephalic and Anicteric
Cardiovascular: S1/S2 and Peripheral Edema (negative)
Respiratory: Wheeze (Mellette upon expiration bilaterally), Rales (Left base), Rhonchi (negative), Non-Labored Respirations and Other (Diminished breath sounds (L >R))
GI: Soft, Non Distended, Non Tender and Normal Bowel Sounds
Neurology: Awake, Alert and Tremors (negative)
Skin: Warm and Dry
General: Respiratory Distress (negative), Comfortable, Fever (negative) and Chills (negative)
Assessment
-
Assessment: 73-year-old female with a past medical history of metastatic lung cancer on chemotherapy with history of XRT/chemotherapy/immunotherapy, hypertension and anxiety who presents with worsening cough and shortness of breath. She was
recently on doxycycline for bronchitis but she was not improving so she came to the hospital. Imaging shows a left-sided pleural effusion with diffuse pleural thickening with an irregular soft tissue lesion encasing the left hilum, keeping with her
history of lung cancer. Also no evidence of an acute PE. Overall, CT chest is relatively similar to recent CT chest from 09/03/2024 when she was in the ER for left-sided flank/back pain. Here in the ER she was febrile to 102.2 �F, was tachypneic
and tachycardic. Labs show worsening leukocytosis compared to when she was recently here in the ER. She was started on antibiotics in the ER, given 1 L of normal saline and admitted to telemetry. Hospitalist service now consulting pulmonary for
additional management/recommendations.
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
years ago), hypertension, anxiety
Impression:
#Fevers, shortness of breath, and leukocytosis due to sepsis from suspected pneumonia with possible post-obstructive component from known L-sided perihilar lung cancer
#Left sided pleural effusion with surrounding pleural thickening- differential is empyema versus malignant effusion (patient says that she has had this effusion for years and has had many thoracenteses)
#Acute respiratory failure with hypoxia due to above
#Leukocytosis with monocytosis
#Hypochloremic, hyponatremia likely due to reduced PO intake with early satiety
#Metastatic lung cancer s/p chemo/XRT, currently on chemotherapy every 3 weeks for the past 1 year, per patient (they follow at [facility] + history of right upper lobectomy
#Hiatal hernia
Plan:
- Patient has a left lower lobe pleural effusion that the patient says is chronic, and evidence of a left perihilar lesion which correlates with her history of lung cancer
-I personally reviewed her CTA chest from 09/22/2024 and she has extrinsic compression of her left upper lobe bronchus + left lower lobe bronchus from this perihilar mass. There also appears to be a medial left lower lobe consolidation with
opacification in the left lower lobe and also other patchy opacities in the medial right lower lobe.
- According to the patient she has had 16 thoracentesis procedures at [facility]
- Given her elevated white count, immunocompromised state and fever, need to rule out empyema --> NPO p MN for thoracentesis tomorrow, possibly may need a chest tube
- Send off pleural fluid studies for tomorrow as well as cultures + cytopathology
- The patient and the daughter are amenable for a chest tube if needed, however they are not sure how aggressive they want to be given her history of lung malignancy
- For now I would continue treating her for a suspected pneumonia, possibly postobstructive
- ID currently on board, and patient on Zosyn/vancomycin
- Follow-up blood cultures, and respiratory cultures (all collected 09/22/2024)
- Trend WBC and monitor fever curve
- Maintain SpO2 >90-94% with supplemental oxygen and wean as tolerated
- Continue aspiration precautions
- Start DuoNebs QID with prn Xopenex
- Start Mucinex
- She also endorses a chest discomfort in the middle of her chest, and she does have a hiatal hernia, hence this could very well be gastroesophageal reflux
- She takes Pepcid at home and I will give her a one-time IV dose now, and then start her on 10 mg PO BID
- Continue to monitor her chest discomfort and if it worsens then need to check stat EKG with set of troponins with possible consult to cardiology
- What's encouraging is that her troponin is negative and her chest pain is atypical, hence doubt her chest pain is cardiac related
- Pain control
- Maintain MAP>65
- Replete electrolytes with K>4, Mg>2
- Maintain euglycemia with goal BG 140-180
- Trend H/H and transfuse if needed to keep Hb>7g/dL; keep plt>20k, unless there is concern for bleeding then keep plt>50k
- prn nebulized bronchodilators - not currently bronchospastic
- Incentive spirometer encouraged 10x per hour for at least 4 hrs a day
- PT/OT
- DVT ppx: LMWH
Code status: DNR/DNI
Pulmonary service will continue to follow along.
Data:
CTA chest 09/22/2024:
No CTA evidence for an acute pulmonary thromboembolism.
Irregular soft tissue encasing the left hilum most in keeping with the patient's known lung cancer and probable posttreatment related changes. Small to moderate left basilar pleural effusion with diffuse pleural thickening. Similar appearance
compared to the previous chest CT from 09/03/2024, but superimposed infection/empyema would be difficult to exclude.
(Patient seen and evaluated on 09/22/2024): Total time spent today was 58 minutes for this encounter. Time includes reviewing laboratory test/imaging results, reviewing pertinent medical records, obtaining and reviewing medical history, performing an
appropriate exam, ordering medications, tests and procedures. Time also includes documentation of this encounter, coordinating patient care and communicating with other healthcare professionals. Total time does not include separately billed tests
performed on this date of service.
--- NOTE | 2024-09-22 17:54 | CON.ID ---
Consultation
-
Date/Time Consultation Requested: 09/22/2024 1353
Date/Time Consultation Performed: 09/22/2024 1718
Requesting Provider: Dr. Rolon
Performing Provider: Dr. Perry
Reason for Consultation: Pneumonia
Chief Complaint / Past History
History of Present Illness
The patient is a 73-year-old female with a significant past medical history of lung cancer, currently on chemotherapy (Avastin, Alimta) q. 3 weeks at [facility]. She presents to the ER here at [facility] following 3 days of
increasing shortness of breath and unrelenting cough. She was in touch with her physician 2 days ago and was placed on doxycycline, and has taken 5 doses thus far, but her shortness of breath has worsened. She reports lack of sleep secondary to
cough. Today she developed a fever to 102 degrees.
She reports that her sputum was clear, but has now turned yellow. Today she also reports that she coughed up a dark brown clump. She denies any sick contacts. She reports that she recently was on dexamethasone for gout, but stopped the tapering
dose 2 days ago. She reportedly has had a leukocytosis for the past 3 weeks, and she did not receive Neulasta at her last infusion.
There are no pets in the house. She has not had any travel. There are no sick contacts.
Past History
Additional Past Medical History:
Lung cancer (on Avastin, Alimta)
HTN
Anxiety
Additional Past Surgical History:
MAYITO
Right upper lobe resection
Allergy History:
No Known Allergies Allergy (Verified 05/07/23 18:15)
Medications Reviewed: Yes
Current Antibiotics:
Vancomycin
Zosyn
Social History
Tobacco: Non-Smoker
Alcohol: None
Drug: None
Living: With Family
Employment: Retired
Family History
Family History: Not Pertinent
Review of Systems
Vital Signs
Temp Pulse Resp BP Pulse Ox
102.2 F H 114 25 133/82 95
09/22/24 14:45 09/22/24 12:53 09/22/24 12:53 09/22/24 09:01 09/22/24 12:53
Physical Exam
Physical Exam
Constitutional: No Acute Distress, Comfortable, Acutely Ill, Chronically Ill and Non-toxic
Eyes: Pupils Equal, No Conjunctival Hemorrhage and Sclera Anicteric
Oral: No Thrush and No Ulcers
Cardiovascular: S1/S2; Negative S3/S4
Pulmonary: Rhonchi (Throughout), Coarse and Non Labored
Gastrointestinal: Soft, Non Tender, Non Distended and Normal Bowel Sounds
Skin: Warm and Dry; Negative Rash or Jaundice
Neurological: Awake and Alert
Psychological: Calm
Lab / Diagnostic Study Results
09/22/24 08:38
09/22/24 08:38
Total Counted 100 09/22/24 08:38
Abs Neuts (Manual) 2.6 10^3/uL (1.4-6.5) 09/22/24 08:38
Segmented Neutrophils 9 % (42-75) L 09/22/24 08:38
Band Neutrophils 1 % (0-3) 09/22/24 08:38
Lymphocytes (Manual) 26 % (20-51) 09/22/24 08:38
Lactic Acid Cancelled 09/22/24 12:45
Microbiology Results
Micro:
09/22/24 12:05 Respiratory Culture - Pending
Sputum Gram Stain - Preliminary
09/22/24 12:05 Legionella Urinary Antigen - Final
Urine Negative for Legionella pneumophila Serogroup 1 antigen.
A negative result does not rule out the possiblity of
Legionella infection due to other serogroups or species of
Legionella. Clinical correlation is recommended.
Streptococcus pneumoniae Antigen (M - Final
Negative for Streptococcus pneumoniae antigen.
A negative result does not exclude infection with
Streptococcus pneumoniae. Clinical correlation is
recommended.
09/22/24 08:53 Influenza Types A & B (LUIS) - Final
Nasal Swab Negative for Influenza A & B, NAAT
Negative results must be combined with clinical observations
and patient history.
Nucleic Acid Amplification test (NAAT)performed on the
[employer] platform.
09/22/24 08:53 Blood Culture - Pending
Blood/Venous
09/22/24 08:39 Blood Culture - Pending
Blood/Venous
Imaging:
09/22/2024 CT chest: No CTA evidence for an acute pulmonary thromboembolism. Irregular soft tissue encasing the left hilum most in keeping with the patient's known lung cancer and probable posttreatment related changes. Small to moderate left
basilar pleural effusion with diffuse pleural thickening. Similar appearance compared to the previous chest CT from 09/03/2024, but superimposed infection/empyema would be difficult to exclude. Multiple other findings essentially unchanged from the
prior chest CT.
Assessment / Plan
Acute bronchitis +/- PNA
Shortness of breath
Fever
Leukocytosis ( ?acute vs chronic)
Lung cancer (on Avastin, Alimta)
HTN
Anxiety
Recommendations:
Continue with empiric vancomycin and Zosyn. Monitor Vanco levels to prevent nephrotoxicity
Sputum culture has been ordered and is pending.
Check respiratory viral panel.
Follow white count and temperature curve.
Follow pending blood cultures.
Monitor O2 sats.
Further recommendations as additional data is returned.
[2024-09-22] MEDS: LOVENOX 30 MG SC (20:11)
[2024-09-22] MEDS: VANCOCIN 200 IV (20:11)
--- NOTE | 2024-09-22 20:30 | PTCARENOTE ---
Pt arrived from ED to room 329 via stretcher. Pt able to walk to bed with staff assistance. Pt AAOx3 and able to make needs known. Oriented to room, call rivers within reach. With continue to monitor pt.
[2024-09-22] MEDS: LOPRESSOR 25 MG PO (21:32)
[2024-09-22] MEDS: ANESTHETIC LOZENGE 1 LOZENGE PO (21:32)
[2024-09-22] MEDS: MELATONIN 5 MG PO (21:32)
[2024-09-22] MEDS: PEPCID 20 MG IV (22:24)
[2024-09-22] MEDS: NSS (PRESERVATIVE FREE) 8 ML IV (22:24)
[2024-09-23] VITALS (7 sets, daily range): BP systolic 84–145; BP diastolic 60–91
[2024-09-23] MEDS: ZOSYN 50 IV ×4 (01:37→20:14)
[2024-09-23] MEDS: ANESTHETIC LOZENGE 1 LOZENGE PO ×3 (01:48→22:14)
[2024-09-23] MEDS: XOPENEX 1.25 MG INHALANT SOLUTION INH ×2 (02:35→13:09)
[2024-09-23] MEDS: PHENERGAN WITH CODEINE SYRUP 5 ML PO ×2 (04:31→12:07)
[2024-09-23] MEDS: VANCOCIN 200 IV ×2 (05:08→17:20)
[2024-09-23] MEDS: TYLENOL 650 MG PO ×3 (06:11→20:15)
[2024-09-23] MEDS: DUONEB 3 ML INH ×3 (07:29→19:25)
[2024-09-23] MEDS: MUCINEX 1200 MG PO ×2 (07:43→20:15)
[2024-09-23] MEDS: PEPCID 10 MG PO ×2 (07:43→20:20)
[2024-09-23] MEDS: ALDACTONE 50 MG PO (07:43)
[2024-09-23 08:23] LABS: LDH 221 U/L (120-246)
[2024-09-23 09:19] LABS: Hemoglobin 10.4 g/dL (12.0-16.0); Mean Corp Hgb Conc. 33.5 g/dL (33.0-37.0); Mean Corpuscular Hgb 33.1 pg (27.0-31.0); Mean Corpuscular Volume 98.7 fL (81.0-99.0); Mean Platelet Volume 9.7 fL (7.4-10.4); Platelet Count 147 10^3/uL (130-400); Red Blood Cell Count 3.14 10^6/uL (4.20-5.40); Red Cell Dist. Width 17.1 % (11.5-14.5); White Blood Cell Count 40.7 10^3/uL (4.8-10.8)
[2024-09-23 09:30] LABS: Blood Urea Nitrogen 9 mg/dl (7-17); Calcium 9.4 mg/dl (8.4-10.2); Carbon Dioxide 27 mmol/L (22-30); Chloride 98 mmol/L (98-107); Estimated Creatinine Clearance 82 ml/min; Glucose 109 mg/dl (70-99); Potassium 3.3 mmol/L (3.5-5.1); Sodium 132 mmol/L (135-145); eGFR > 60.00
--- NOTE | 2024-09-23 09:41 | PHA.VAN.FU ---
Vancomycin Assessment / Plan
- Assessment
Renal Function: Stable
WBC's are: Trending Up
In the past 24 hrs, patient has been: Febrile (Tmax = 102.2)
Concomitant Antimicrobials: Piperacillin-tazobactam
- Dosing Plan
Continue: Vanc 1000mg IV q12H
- Monitoring Plan
Peak Level: 3/2 at 2030
Trough Level: 3/3 at 0530
- Follow Up
Pharmacy will continue to follow.
Vancomycin Follow UP
- -
Patient Age: 73
Patient Sex: Female
Vancomycin Day #: 2
Indication: Pulmonary/Respiratory
Requesting Provider: Gonzales
Height / Weight:
Height 5 ft 8 in
Actual Weight 73.346 kg
IBW in k.9
Adjusted BW in k.9
Pertinent Past Medical History: Hx of lung CA; Chemo [place]; outpt Doxy 100mg bid--5 doses
- Vital Signs / Lab Results
Temp Pulse Resp BP Pulse Ox
98.3 F 86 18 116/71 96
09/23/24 07:00 09/23/24 07:31 09/23/24 07:31 09/23/24 07:00 09/23/24 07:31
Lab Results - Hematology
09/22/24 09/23/24
08:38 06:00
WBC 26.9 H 40.7 H*
Band Neutrophils 1
Lab Results - Chemistry
09/22/24 09/23/24 09/23/24
08:38 07:33 08:55
BUN 15 9 Cancelled
Creatinine 0.6 0.6 Cancelled
Estimated Creat Clear 82 82 Cancelled
Albumin 3.9
09/22/24 09/22/24
08:38 12:45
Lactic Acid 1.7 Cancelled
Microbiology Results
09/22/24 08:53 Blood Culture - Preliminary
Blood/Venous No Growth in 24 hours- Final report to follow
09/22/24 08:39 Blood Culture - Preliminary
Blood/Venous No Growth in 24 hours- Final report to follow
09/22/24 12:05 Gram Stain - Preliminary
Sputum
09/22/24 12:05 Legionella Urinary Antigen - Final
Urine Negative for Legionella pneumophila Serogroup 1 antigen.
A negative result does not rule out the possiblity of
Legionella infection due to other serogroups or species of
Legionella. Clinical correlation is recommended.
Streptococcus pneumoniae Antigen (M - Final
Negative for Streptococcus pneumoniae antigen.
A negative result does not exclude infection with
Streptococcus pneumoniae. Clinical correlation is
recommended.
09/22/24 08:53 Influenza Types A & B (LUIS) - Final
Nasal Swab Negative for Influenza A & B, NAAT
Negative results must be combined with clinical observations
and patient history.
Nucleic Acid Amplification test (NAAT)performed on the
[employer] platform.
[2024-09-23] MEDS: DUONEB INH ×2 (11:28→15:30)
--- NOTE | 2024-09-23 12:05 | W.PN.HOSP.TC ---
Today's Communication/Plan
-
IV antibiotics
Follow-up on fluid analysis blood culture sputum culture in [place] culture
Continue to follow ID and pulmonary recommendations
Supportive care for RSV
Assessment / Plan
Assessment / Plan
NAD
Scleral Anicteric
MMM
No JVD
Diminished breath sounds left lower base. Right lung lobes are clear
Regular but tachycardic, S1/S2
Soft, NT, ND, BS+
Warm, Dry
AAOx3
Acute on chronic respiratory failure likely secondary to sepsis from acute bronchitis plus minus pneumonia likely viral as RSV positive. Question as this is a postobstructive pneumonia or empyema/parapneumonic effusion. If failed outpatient
antibiotic therapy with doxycycline.
-Wean oxygen as tolerated
-Acapella
-Incentive spirometer
-Sputum cx
-Legionella/Strep pneumo
-Antitussive (Prometh with Codine)
-Mucinex
-Vancomycin Zosyn in order to cover for anaerobic coverage
-CT PE study ordered
-Bcx ordered
-Monitor on tele
-Start Nasal saline for post nasal drip
RSV positive
Supportive care
Left sided pleural effusion
-Follow-up on fluid analysis
Lung Ca
-Outpatient Onc follow up at [facility]
-She is considering transferring care to Oncology
-- She would like to be seen by our Oncology team, as this is a and she will still be here on Tuesday with follow-up for oncology to evaluate on a weekday
HTN
-Continue antihypertensive
Gerd
-PPI
DNR/DNI
Anticipated Discharge: 24 - 48 hours
Subjective/Interval History
-
Date of Service: September 23, 2024
seen and examined.
cough worse when laying back
improves with sitting forward and walking
-this is concerning for post nasal drip vs gerd
Objective Data
-
Labs:
Laboratory Results
09/23/24 09/23/24 09/23/24
06:00 07:33 08:55
WBC 40.7 H*
Hgb 10.4 L
Hct 31.0 L
Plt Count 147 D
Sodium 132 L Cancelled
Potassium 3.3 L Cancelled
Chloride 98 Cancelled
Carbon Dioxide 27 Cancelled
BUN 9 Cancelled
Creatinine 0.6 Cancelled
Glucose 109 H Cancelled
Calcium 9.4 Cancelled
Vital Signs:
Vital Signs
Temp Pulse Resp BP Pulse Ox
98.3 F 84 24 130/69 96
09/23/24 10:26 09/23/24 11:20 09/23/24 11:20 09/23/24 11:20 09/23/24 11:20
[2024-09-23 12:50] LABS: Body Fluid pH 7.07
--- NOTE | 2024-09-23 13:00 | W.PN.PUL3 ---
Today's Communication / Plan
-
Thoracentesis performed today showing 20 cc of dark bloody fluid, follow-up cultures + cytopathology
Mild improvement seen and post�thoracentesis CXR
Patient has RSV pneumonia and this is likely causing the bulk of her symptoms
Supportive care
DuoNebs + mucolytics
Anti-tussants prn
Supplemental O2 keeping SpO2 >90-94%
Check ambulatory pulse oximetry prior to discharge
Pulmonary service will continue to follow along
Assessment
-
Assessment: 73-year-old female with a past medical history of metastatic lung cancer on chemotherapy with history of XRT/chemotherapy/immunotherapy, hypertension and anxiety who presents with worsening cough and shortness of breath. She was
recently on doxycycline for bronchitis but she was not improving so she came to the hospital. Imaging shows a left-sided pleural effusion with diffuse pleural thickening with an irregular soft tissue lesion encasing the left hilum, keeping with her
history of lung cancer. Also no evidence of an acute PE. Overall, CT chest is relatively similar to recent CT chest from 09/03/2024 when she was in the ER for left-sided flank/back pain. Here in the ER she was febrile to 102.2 �F, was tachypneic
and tachycardic. Labs show worsening leukocytosis compared to when she was recently here in the ER. She was started on antibiotics in the ER, given 1 L of normal saline and admitted to telemetry. Hospitalist service now consulting pulmonary for
additional management/recommendations.
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
years ago), hypertension, anxiety
Impression:
#Fevers, shortness of breath, and leukocytosis due to sepsis from RSV pneumonia with possible post-obstructive PNA from known L-sided perihilar lung cancer
#Left sided complex pleural effusion with surrounding pleural thickening- suspected malignant effusion (patient says that she has had this effusion for years and has had many thoracenteses)
#Acute respiratory failure with hypoxia due to above
#Leukocytosis with monocytosis
#Hypochloremic, hyponatremia likely due to reduced PO intake with early satiety
#Metastatic lung cancer s/p chemo/XRT, currently on chemotherapy every 3 weeks for the past 1 year, per patient (they follow at [facility]) + history of right upper lobectomy
#Hiatal hernia
Plan:
- Patient has a left lower lobe pleural effusion that the patient says is chronic, and evidence of a left perihilar lesion which correlates with her history of lung cancer
- Dr. Sanchez personally reviewed her CTA chest from 09/22/2024 and she has extrinsic compression of her left upper lobe bronchus + left lower lobe bronchus from this perihilar mass. There also appears to be a medial left lower lobe consolidation
with opacification in the left lower lobe and also other patchy opacities in the medial right lower lobe.
- According to the patient she has had 16 thoracentesis procedures at [facility]
- Given her elevated white count, immunocompromised state and fever, need to rule out empyema --> no empyema seen on thoracentesis from 09/23/2024; 20cc of dark bloody fluid seen and sent for fluid studies; no chest tube needed at this time
- Follow up pleural fluid cultures + cytopathology from [facility] on 09/23
- For now continue treating her for a suspected pneumonia, possibly postobstructive
- ID currently on board, and patient on Zosyn/vancomycin
- Follow-up blood cultures, and respiratory cultures (all collected 09/22/2024)
- Trend WBC and monitor fever curve
- She is also positive for RSV on RV-panel, and this could be a large contributor to her current symptoms
- Continue supportive care
- Maintain SpO2 >90-94% with supplemental oxygen and wean as tolerated
- Continue aspiration precautions
- Continue DuoNebs QID with prn Xopenex
- Continue Mucinex
- Ambulatory pulse oximetry prior to discharge
- She also endorses a chest discomfort in the middle of her chest, and she does have a hiatal hernia, hence this could very well be gastroesophageal reflux
- She takes Pepcid at home --> continue pepcid 10 mg PO BID
- Continue to monitor her chest discomfort and if it worsens then need to check stat EKG with set of troponins with possible consult to cardiology
- What's encouraging is that her troponin is negative and her chest pain is atypical, hence doubt her chest pain is cardiac related
- Pain control
- Maintain MAP>65
- Replete electrolytes with K>4, Mg>2
- Maintain euglycemia with goal BG 140-180
- Trend H/H and transfuse if needed to keep Hb>7g/dL; keep plt>20k, unless there is concern for bleeding then keep plt>50k
- prn nebulized bronchodilators - not currently bronchospastic
- Incentive spirometer encouraged 10x per hour for at least 4 hrs a day
- PT/OT
- DVT ppx: LMWH
Code status: DNR/DNI
Pulmonary service will continue to follow along.
Data:
CTA chest 09/22/2024:
No CTA evidence for an acute pulmonary thromboembolism.
Irregular soft tissue encasing the left hilum most in keeping with the patient's known lung cancer and probable posttreatment related changes. Small to moderate left basilar pleural effusion with diffuse pleural thickening. Similar appearance
compared to the previous chest CT from 09/03/2024, but superimposed infection/empyema would be difficult to exclude.
Total time spent today was 37 minutes for this encounter. Time includes reviewing laboratory test/imaging results, reviewing pertinent medical records, obtaining and reviewing medical history, performing an appropriate exam, ordering medications,
tests and procedures. Time also includes documentation of this encounter, coordinating patient care and communicating with other healthcare professionals. Total time does not include separately billed tests performed on this date of service.
Subjective Data
-
Date of Service:
Date of Service: September 23, 2024
Chief Complaint: Pulmonary Follow Up
Subjective:
Patient seen and evaluated this morning. Went for left-sided thoracentesis earlier today with 20 cc of dark hemorrhagic pleural fluid evacuated and sent for fluid studies. Chest US showed complex left-sided pleural fluid with numerous internal
septations. No acute events reported from overnight.
Review of Systems
General: Other (Negative unless mentioned above)
Objective Data
Data Reviewed
Vital Signs / I&O / Oxygen:
Vital Signs
Temp Pulse Resp BP Pulse Ox
98.3 F 86 18 116/71 96
09/23/24 07:00 09/23/24 07:31 09/23/24 07:31 09/23/24 07:00 09/23/24 07:31
SaO2 96
Nasal Cannula flow liters per 3
minute
Physical Exam
General: Respiratory Distress (negative), Comfortable, Chills (negative) and Sweats (negative)
HEENT: Normocephalic and Anicteric
Cardiovascular: Peripheral Edema (negative)
Respiratory: Wheeze ([place] bilaterally), Crackles (Left base), Rhonchi (negative), Accessory Resp Muscle Use (negative), Stridor (negative) and Other (Diminished breath sounds bilaterally (L >R))
GI: Soft, Non Distended, Non Tender and Normal Bowel Sounds
Neurology: AO x 3 and Tremors (negative)
Skin: Warm, Dry, Cyanosis (negative) and Jaundice (negative)
Labs/Micro/Reports
Lab Data
09/23/24 06:00
09/23/24 08:55
Microbiology
09/22/24 08:53 Blood/Venous Blood Culture - Preliminary
No Growth in 24 hours- Final report to follow
09/22/24 08:39 Blood/Venous Blood Culture - Preliminary
No Growth in 24 hours- Final report to follow
09/22/24 12:05 Sputum Gram Stain - Preliminary
09/22/24 12:05 Urine Legionella Urinary Antigen - Final
Negative for Legionella pneumophila Serogroup 1 antigen.
A negative result does not rule out the possiblity of
Legionella infection due to other serogroups or species of
Legionella. Clinical correlation is recommended.
09/22/24 12:05 Urine Streptococcus pneumoniae Antigen (M - Final
Negative for Streptococcus pneumoniae antigen.
A negative result does not exclude infection with
Streptococcus pneumoniae. Clinical correlation is
recommended.
09/22/24 08:53 Nasal Swab Influenza Types A & B (LUIS) - Final
Negative for Influenza A & B, NAAT
Negative results must be combined with clinical observations
and patient history.
Nucleic Acid Amplification test (NAAT)performed on the
[employer] platform.
[2024-09-23 13:02] LABS: Body Fluid Amylase 103 U/L; Body Fluid Glucose < 30 mg/dl; Body Fluid Protein 6.8 g/dl; Body Fluid Triglycerides 157 mg/dl
[2024-09-23 13:35] LABS: Body Fluid LDH 3607 U/L
--- NOTE | 2024-09-23 13:43 | W.PN.ID1 ---
Date of Service
Date of Service: September 23, 2024
Today's Communication
Continue antibiotics
Assessment / Plan
Acute bronchitis +/- PNA
RSV infection
Shortness of breath
Fever
Leukocytosis ( ?acute vs chronic)
Lung cancer (on Avastin, [place])
HTN
Anxiety
Recommendations:
Continue with empiric vancomycin and Zosyn. Monitor Vanco levels to prevent nephrotoxicity
Sputum culture has been ordered and is pending.
Respiratory viral panel is positive for RSV. Contact precautions initiated.
- At this time, no antiviral therapy (ribavirin) is indicated given clinical stability of the patient.
Follow white count and temperature curve.
Follow pending blood cultures.
Monitor O2 sats.
Further recommendations as additional data is returned.
Daughter updated at the bedside
Chief Complaint
-: Pneumonia
Subjective / Review of Systems
Patient seen and examined. Reports feeling somewhat improved today. Decreased cough overall.
Review of Systems: No Fever and No Chills
Vital Signs / Physical Exam
Vital Signs
Vital Signs
Temp Pulse Resp BP Pulse Ox
98.3 F 84 24 130/69 96
09/23/24 10:26 09/23/24 11:20 09/23/24 11:20 09/23/24 11:20 09/23/24 11:20
Physical Exam
Constitutional: Comfortable, Chronically Ill and Non-toxic
Pulmonary: Non Labored
Gastrointestinal: Non Distended
Extremities: Negative Erythema
Neurological: Awake and Alert
Psychological: Calm
Objective Data
Lab Data
Lab Results
09/23/24 06:00
09/23/24 08:55
Estimated Creat Clear Cancelled 09/23/24 08:55
Lactic Acid Cancelled 09/22/24 12:45
Total Bilirubin 0.5 mg/dl (0.2-1.3) 09/22/24 08:38
AST 21 U/L (14-36) 09/22/24 08:38
ALT 24 U/L (0-35) 09/22/24 08:38
Alkaline Phosphatase 84 U/L (38-126) 09/22/24 08:38
Most recent labs reviewed.
Micro Results:
09/22/24 19:32 Respiratory Culture - Pending
Sputum Gram Stain - Preliminary
09/23/24 11:27 Fungal Culture - Preliminary
Pleural Fluid Culture in progress.
Positive cultures are reported as soon as detected.
Final report to follow in four to five weeks.
09/23/24 11:27 Body Fluid Culture - Pending
Pleural Fluid Gram Stain - Pending
09/23/24 11:27 Acid Fast Bacilli Smear - Pending
Pleural Fluid Acid Fast Bacilli Culture - Pending
09/22/24 12:05 Respiratory Culture - Preliminary
Sputum Usual Respiratory Melissa
Gram Stain - Preliminary
09/23/24 07:41 Influenza Type A (PCR) - Final
Nasalpharynx Not Detected
Influenza Type A (H1) (PCR) - Final
Not Detected
Influenza Type A (H3) (PCR) - Final
Not Detected
Influenza Type B (PCR) - Final
Not Detected
Resp Syncytial Virus Type A (PCR) - Final
DETECTED
Resp Syncytial Virus Type B (PCR) - Final
Not Detected
Adenovirus DNA (PCR) - Final
Not Detected
Human Metapneumovirus (PCR) - Final
Not Detected
Parainfluenza Virus Type 1 (PCR) - Final
Not Detected
Parainfluenza Virus Type 2 (PCR) - Final
Not Detected
Parainfluenza Virus Type 3 (PCR) - Final
Not Detected
Parainfluenza Virus Type 4 - Final
Not Detected
Rhinovirus (PCR) - Final
Not Detected
09/22/24 08:53 Blood Culture - Preliminary
Blood/Venous No Growth in 24 hours- Final report to follow
09/22/24 08:39 Blood Culture - Preliminary
Blood/Venous No Growth in 24 hours- Final report to follow
09/22/24 12:05 Legionella Urinary Antigen - Final
Urine Negative for Legionella pneumophila Serogroup 1 antigen.
A negative result does not rule out the possiblity of
Legionella infection due to other serogroups or species of
Legionella. Clinical correlation is recommended.
Streptococcus pneumoniae Antigen (M - Final
Negative for Streptococcus pneumoniae antigen.
A negative result does not exclude infection with
Streptococcus pneumoniae. Clinical correlation is
recommended.
09/22/24 08:53 Influenza Types A & B (LUIS) - Final
Nasal Swab Negative for Influenza A & B, NAAT
Negative results must be combined with clinical observations
and patient history.
Nucleic Acid Amplification test (NAAT)performed on the
[employer] platform.
Imaging:
09/22/2024 CT chest: No CTA evidence for an acute pulmonary thromboembolism. Irregular soft tissue encasing the left hilum most in keeping with the patient's known lung cancer and probable posttreatment related changes. Small to moderate left
basilar pleural effusion with diffuse pleural thickening. Similar appearance compared to the previous chest CT from 09/03/2024, but superimposed infection/empyema would be difficult to exclude. Multiple other findings essentially unchanged from the
prior chest CT.
[2024-09-23 14:01] LABS: Body Fluid Mononuclear 57.6 %; Body Fluid Polymorphonuclear 42.4 %; Body Fluid WBC 3535 /CUMM
[2024-09-23 14:02] LABS: Body Fluid Hematocrit 4.1 %
[2024-09-23 14:05] LABS: Body Fluid Second Tech AMA
[2024-09-23] MEDS: TESSALON PERLES 200 MG PO (16:11)
[2024-09-23] MEDS: AYR SALINE NASAL GEL 1 APPLIC NASAL (16:15)
[2024-09-23] MEDS: LOVENOX 30 MG SC (17:20)
[2024-09-23] MEDS: MELATONIN 5 MG PO (20:15)
[2024-09-23] MEDS: MAGIC OR MIRACLE MOUTHWASH 5 ML PO ×2 (20:16→22:00)
[2024-09-23] MEDS: LOPRESSOR 25 MG PO (20:21)
[2024-09-24] MEDS: ZOSYN 50 IV ×2 (02:03→09:07)
[2024-09-24 03:32] VITALS: BP 124/73
[2024-09-24] MEDS: TESSALON PERLES 200 MG PO ×2 (04:20→11:36)
[2024-09-24] MEDS: TYLENOL 650 MG PO ×3 (04:21→21:34)
[2024-09-24] MEDS: XOPENEX 1.25 MG INHALANT SOLUTION INH (04:23)
[2024-09-24 06:54] LABS: Blood Urea Nitrogen 17 mg/dl (7-17); Calcium 9.5 mg/dl (8.4-10.2); Carbon Dioxide 27 mmol/L (22-30); Chloride 98 mmol/L (98-107); Estimated Creatinine Clearance 38 ml/min; Glucose 132 mg/dl (70-99); Potassium 3.1 mmol/L (3.5-5.1); Sodium 135 mmol/L (135-145); eGFR 42.88
[2024-09-24 07:02] LABS: Vancomycin Trough 15.2 ug/ml (5-20)
[2024-09-24] MEDS: VANCOCIN 200 IV (07:41)
[2024-09-24] MEDS: MUCINEX 1200 MG PO ×2 (07:41→19:51)
[2024-09-24 07:42] VITALS: BP 113/59
[2024-09-24] MEDS: PEPCID 10 MG PO ×2 (07:42→19:51)
[2024-09-24] MEDS: ALDACTONE 50 MG PO (07:43)
[2024-09-24] MEDS: DUONEB 3 ML INH ×3 (08:40→14:48)
[2024-09-24] MEDS: MAGIC OR MIRACLE MOUTHWASH 5 ML PO ×5 (09:07→21:32)
--- NOTE | 2024-09-24 10:03 | PHA.VAN.FU ---
Vancomycin Assessment / Plan
- Assessment
Renal Function: SCR Increasing (0.6 (3.2) ->1.3 (ON 3.3))
WBC's are: WNL (26.9->40.7)
In the past 24 hrs, patient has been: Afebrile
Concomitant Antimicrobials: piperacillin/tazobactam
- Assessment - Therapeutic Drug Monitoring
Trough Drawn: Appropriately (T=15.2 on 09/24 @0606. Peak level was not drawn on 09/23)
- Dosing Plan
Dosing by Level: Hold off on dosing today (received 1000 mg x 1 on 09/24 in AM, evening dose discontinued.)
- Monitoring Plan
Random Level: 09/25 @ 0600
- Follow Up
Pharmacy will continue to follow.
Vancomycin Follow UP
- -
Patient Age: 73
Patient Sex: Female
Vancomycin Day #: 3
Indication: Pulmonary/Respiratory
Requesting Provider: Gonzales
Height / Weight:
Height 5 ft 8 in
Actual Weight 73.346 kg
IBW in k.9
Adjusted BW in k.9
Pertinent Past Medical History: Hx of lung CA; Chemo [place]; outpt Doxy 100mg bid--5 doses
- Vital Signs / Lab Results
Temp Pulse Resp BP Pulse Ox
97.8 F 88 18 113/59 97
09/24/24 07:42 09/24/24 08:45 09/24/24 08:45 09/24/24 07:42 09/24/24 08:45
Lab Results - Hematology
09/22/24 09/23/24
08:38 06:00
WBC 26.9 H 40.7 H*
Band Neutrophils 1
Lab Results - Chemistry
09/22/24 09/23/24 09/23/24
08:38 07:33 08:55
BUN 15 9 Cancelled
Creatinine 0.6 0.6 Cancelled
Estimated Creat Clear 82 82 Cancelled
Albumin 3.9
09/24/24
06:06
BUN 17
Creatinine 1.3 H
Estimated Creat Clear 38
Albumin
09/22/24 09/22/24
08:38 12:45
Lactic Acid 1.7 Cancelled
Microbiology Results
09/22/24 08:53 Blood Culture - Preliminary
Blood/Venous No Growth in 48 hours- Final report to follow
09/22/24 08:39 Blood Culture - Preliminary
Blood/Venous No Growth in 48 hours- Final report to follow
09/23/24 11:27 Gram Stain - Preliminary
Pleural Fluid
09/22/24 19:32 Gram Stain - Preliminary
Sputum
09/23/24 11:27 Fungal Culture - Preliminary
Pleural Fluid Culture in progress.
Positive cultures are reported as soon as detected.
Final report to follow in four to five weeks.
09/22/24 12:05 Respiratory Culture - Preliminary
Sputum Usual Respiratory Melissa
Gram Stain - Preliminary
09/23/24 07:41 Influenza Type A (PCR) - Final
Nasalpharynx Not Detected
Influenza Type A (H1) (PCR) - Final
Not Detected
Influenza Type A (H3) (PCR) - Final
Not Detected
Influenza Type B (PCR) - Final
Not Detected
Resp Syncytial Virus Type A (PCR) - Final
DETECTED
Resp Syncytial Virus Type B (PCR) - Final
Not Detected
Adenovirus DNA (PCR) - Final
Not Detected
Human Metapneumovirus (PCR) - Final
Not Detected
Parainfluenza Virus Type 1 (PCR) - Final
Not Detected
Parainfluenza Virus Type 2 (PCR) - Final
Not Detected
Parainfluenza Virus Type 3 (PCR) - Final
Not Detected
Parainfluenza Virus Type 4 - Final
Not Detected
Rhinovirus (PCR) - Final
Not Detected
09/22/24 12:05 Legionella Urinary Antigen - Final
Urine Negative for Legionella pneumophila Serogroup 1 antigen.
A negative result does not rule out the possiblity of
Legionella infection due to other serogroups or species of
Legionella. Clinical correlation is recommended.
Streptococcus pneumoniae Antigen (M - Final
Negative for Streptococcus pneumoniae antigen.
A negative result does not exclude infection with
Streptococcus pneumoniae. Clinical correlation is
recommended.
09/22/24 08:53 Influenza Types A & B (LUIS) - Final
Nasal Swab Negative for Influenza A & B, NAAT
Negative results must be combined with clinical observations
and patient history.
Nucleic Acid Amplification test (NAAT)performed on the
[employer] platform.
Therapeutic Drug Monitoring
Vancomycin Peak Cancelled 09/23/24 20:30
Vancomycin Trough 15.2 ug/ml (5-20) 09/24/24 06:06
[2024-09-24] MEDS: KCL 270 MEQ IV (10:21)
[2024-09-24] MEDS: LR 1000 IV ×2 (10:21→21:33)
[2024-09-24 11:00] VITALS: BP 116/80
--- NOTE | 2024-09-24 11:26 | CON.ONC ---
Impression
Impression
Lung cancer with malignant effusion, pt of [facility]), managed with pemetrexed with addition of Avastin about three weeks ago for modest disease progression
RSV
Plan
Plan
Management of RSV as per primary service.
No indication that her current presentation is treatment-related.
Feeling better since admission.
'Dr. Denny is her doctor' as per daughter. They do not have any specific questions for medical oncology here.
Pt will return to Dr. Denny post-d/c.
Thank you for consult, please call if further questions.
Patient History
History of Present Illness
73-year-old woman with history of lung cancer diagnosed 13 years ago and treated with right upper lobectomy, recurrence versus new primary approximately 4 years ago treated with chemo/RT followed by durvalumab x 13 months, then started Alimta.
Avastin was added about three weeks ago due to modest disease progression. She has a chronic pleural effusion which has been tapped many times. She has a history of lung scarring from radiation/chemo/immunotherapy, hypertension, hysterectomy,
urinary tract infections. She presents with 3 days of worsening shortness of breath and cough productive of yellow sputum. Fever was 102 at home. She had been started on doxycycline for tracheobronchitis 2 days prior. Started on cefepime and
vancomycin in the ER. Admitting to mid chest discomfort. Workup here so far positive for RSV.
Past-Medical/Surgical History
Past medical history
Hypertension
Lung cancer as per HPI, pt of Dr. Peewee Denny, [facility])
Chronic left pleural effusion
PCP: Melonie Faye
Past surgical history
Right upper lobectomy 2009
Hysterectomy 1986 for fibroid uterus
Social history
Former smoker
Alcohol 2-3 times a week
, lives with daughter
Family
Father had lung cancer (smoker)
Patient Medication
�Medication �Instructions �Recorded �Confirmed �Last Taken �Type
spironolactone 25 mg tablet 50 mg PO HS Blood Pressure 05/07/23 09/22/24 09/21/24 History
ondansetron 4 mg disintegrating 4 mg PO BIDPRN PRN nausea/vomiting 09/03/24 09/22/24 Unknown Rx
tablet #10 tabs
doxycycline hyclate 100 mg capsule 100 mg PO BID Infection 09/22/24 09/22/24 09/22/24 History
famotidine 20 mg tablet (Pepcid) 20 mg PO DAILYPRN PRN gerd 09/22/24 09/22/24 Unknown History
folic acid 1 mg tablet 1 mg PO DAILY Supplement 09/22/24 09/22/24 Unknown History
metoprolol succinate 25 mg 25 mg PO HS Blood Pressure 09/22/24 09/22/24 09/21/24 History
tablet,extended release 24 hr
(Toprol XL)
Active Medications
Generic Name Dose Route Start Last Admin
Trade Name Freq PRN Reason Stop Dose Admin
Acetaminophen 650 mg 09/22/24 13:59 09/24/24 04:21
Acetaminophen 325 Mg Tablet PO 10/20/24 13:58 650 mg
Q6HPRN PRN Administration
mild pain/ fever>100.5F
Al Hydrox/Mg Hydrox/Simethicone 1 tablet 09/22/24 13:26 09/22/24 13:58
Maalox Plus PO 10/20/24 13:25 1 tablet
Q4HPRN PRN Administration
gerd
Albuterol/Ipratropium 3 ml 09/23/24 08:00 09/24/24 08:40
Ipratropium 0.5/Albuterol 3 Mg (3 Ml Ampul) INH 3 ml
R QID NOELLE Administration
Protocol
Artificial Tears 1 drops 09/24/24 11:00
Artificial Tears Pf (Refresh) 10 Drop Droperette BOTH EYES 10/22/24 10:59
Q4HPRN PRN
DRY EYES
Benzocaine/Menthol 1 lozenge 09/22/24 21:23 09/23/24 22:14
Benzocaine/Menthol Lozenge PO 10/20/24 21:22 1 lozenge
Q4HPRN PRN Administration
sore throat/cough
Benzonatate 200 mg 09/23/24 15:24 09/24/24 04:20
Benzonatate 100 Mg Capsule PO 10/21/24 15:23 200 mg
TIDPRN PRN Administration
Cough
Bisacodyl 10 mg 09/22/24 19:38
Bisacodyl 10 Mg Rectal Suppository RECTAL 10/20/24 19:37
[id number] PRN
constipation
Enoxaparin Sodium 40 mg 09/24/24 18:00
Enoxaparin Sodium 40 Mg/0.4 Ml Syringe SC 10/22/24 17:59
QPM NOELLE
Famotidine 10 mg 09/23/24 08:00 09/24/24 07:42
Famotidine 20 Mg Tablet PO 10/21/24 07:59 10 mg
BID NOELLE Administration
Guaifenesin 1,200 mg 09/22/24 21:30 09/24/24 07:41
Guaifenesin 600 Mg Extended Release Tablet PO 09/28/24 20:01 1,200 mg
Q12 NOELLE Administration
Piperacillin Sod/Tazobactam Sod 3.375 gram in 50 mls @ 100 mls/hr 09/22/24 14:00 09/24/24 09:07
Zosyn IV 50 mls
Q6H NOELLE Administration
Potassium Chloride 40 meq/ 270 mls @ 67.5 mls/hr 09/24/24 08:56 09/24/24 10:21
Dextrose IV 09/24/24 12:55 270 mls
NOW STA Administration
Lactated Ringer's 1,000 mls @ 100 mls/hr 09/24/24 09:00 09/24/24 10:21
Lr IV 1,000 mls
.Q10H NOELLE Administration
Vancomycin HCl 1 each/ Device 0 mls @ 0 mls/hr 09/24/24 10:05
IV
PER PROTOCOL NOELLE
As Directed
Levalbuterol HCl 1.25 mg 09/22/24 11:41 09/24/24 04:23
Levalbuterol 1.25 Mg/3 Ml Ampul INH 1.25 mg
R Q6HPRN PRN Administration
sob wheezing cough
Protocol
Melatonin 5 mg 09/22/24 22:00 09/23/24 20:15
Melatonin 5 Mg Tablet PO 10/20/24 21:59 5 mg
HS NOELLE Administration
Metoprolol Tartrate 25 mg 09/22/24 22:00 09/23/24 20:21
Metoprolol 25 Mg Regular Release Tablet PO 10/20/24 21:59 25 mg
HS NOELLE Administration
Multi-Ingredient Mouthwash/Gargle 5 ml 09/23/24 19:00 09/24/24 09:07
Magic (Miracle) Mouthwash 90 Ml Bottle PO 5 ml
5/D NOELLE Administration
Ondansetron HCl 4 mg 09/22/24 19:38
Ondansetron 4 Mg (Orally-Disintegrating) Tablet PO 10/20/24 19:37
BIDPRN PRN
nausea/vomiting
Polyethylene Glycol 17 grams 09/22/24 19:38
Polyethylene Glycol Powder 17 Grams Packet PO 10/20/24 19:37
DAILYPRN PRN
constipation
Promethazine HCl/Codeine 5 ml 09/22/24 11:41 09/23/24 12:07
Promethazine (6.25 Mg)/Codeine (10 Mg) Syrup 5 Ml Cup PO 10/20/24 11:40 5 ml
Q4HPRN PRN Administration
cough
Senna/Docusate Sodium 1 tablet 09/22/24 19:38
Docusate W/Senna (Jazzy-Colace) Tablet PO 10/20/24 19:37
BIDPRN PRN
constipation
Sodium Chloride 0 flush 09/22/24 20:00
Sodium Chloride 0.9% (Flush) Syringe IV 10/20/24 19:59
PER PROTOCOL NOELLE
Sodium Chloride 0 applic 09/23/24 12:04 09/23/24 16:15
Holden (Sodium Chloride/Aloe Vera) Nasal Gel 14.1 Gm Tube NASAL 10/21/24 12:03 1 applic
Q2HPRN PRN Administration
post nasal drip
Spironolactone 50 mg 09/23/24 08:00 09/24/24 07:43
Spironolactone 50 Mg Tablet PO 10/21/24 07:59 50 mg
DAILY NOELLE Administration
Review of Systems
-
History Source: Patient
All Other Systems: Reviewed and Negative
Respiratory: Reports Cough and Other (Feeling of girgling in throat)
Physical Exam
-
Awake, alert, non-toxic
No palpable adenopathy
Breath sounds decreased
Heart RRR
Abd soft, non-tender
Extrem no edema
Neuro grossly non-focal
Labs
Lab Results
WBC 40.7 10^3/uL (4.8-10.8) H* 09/23/24 06:00
RBC 3.14 10^6/uL (4.20-5.40) L 09/23/24 06:00
Hgb 10.4 g/dL (12.0-16.0) L 09/23/24 06:00
Hct 31.0 % (37.0-47.0) L 09/23/24 06:00
MCV 98.7 fL (81.0-99.0) 09/23/24 06:00
MCH 33.1 pg (27.0-31.0) H 09/23/24 06:00
MCHC 33.5 g/dL (33.0-37.0) 09/23/24 06:00
RDW 17.1 % (11.5-14.5) H 09/23/24 06:00
Plt Count 147 10^3/uL (130-400) D 09/23/24 06:00
MPV 9.7 fL (7.4-10.4) 09/23/24 06:00
Creatinine 1.3 mg/dL (0.6-1.0) H 09/24/24 06:06
Vital Signs
Vital Signs
Temp Pulse Resp BP Pulse Ox
97.8 F 88 18 113/59 97
09/24/24 07:42 09/24/24 08:45 09/24/24 08:45 09/24/24 07:42 09/24/24 08:45
[2024-09-24] MEDS: REFRESH EYE DROPS (PF) 1 DROPS BOTH EYES (11:35)
--- NOTE | 2024-09-24 12:44 | W.PN.ID1 ---
Date of Service
Date of Service: September 24, 2024
Today's Communication
Discontinue abx.
Follow WBC/temps
Assessment / Plan
Acute bronchitis +/- PNA
RSV infection
Shortness of breath
Fever
Leukocytosis ( ?acute vs chronic)
Lung cancer (on Avastin, Alimta)
HTN
Anxiety
Recommendations:
Sputum culture negative, and only reveals normal dominick.
Discontinue further vancomycin and Zosyn.
Respiratory viral panel is positive for RSV. Continue contact precautions
- At this time, no antiviral therapy (ribavirin) is indicated given clinical stability of the patient.
Follow white count and temperature curve.
Monitor O2 sats.
Daughter updated at the bedside.
Spoke directly with Pt's Heme-Onc physician at [facility] and updated.
Chief Complaint
-: Pneumonia
Subjective / Review of Systems
Patient seen and examined. Feeling somewhat improved. Decreased cough. No sputum.
Review of Systems: No Fever
Vital Signs / Physical Exam
Vital Signs
Vital Signs
Temp Pulse Resp BP Pulse Ox
100.2 F 97 22 116/80 97
09/24/24 11:00 09/24/24 11:00 09/24/24 11:00 09/24/24 11:00 09/24/24 11:00
Physical Exam
Constitutional: Comfortable, Chronically Ill and Non-toxic
Pulmonary: Non Labored
Gastrointestinal: Non Distended
Extremities: Negative Erythema
Neurological: Awake and Alert
Psychological: Calm
Objective Data
Lab Data
Lab Results
09/23/24 06:00
09/24/24 06:06
Estimated Creat Clear 38 ml/min 09/24/24 06:06
Lactic Acid Cancelled 09/22/24 12:45
Total Bilirubin 0.5 mg/dl (0.2-1.3) 09/22/24 08:38
AST 21 U/L (14-36) 09/22/24 08:38
ALT 24 U/L (0-35) 09/22/24 08:38
Alkaline Phosphatase 84 U/L (38-126) 09/22/24 08:38
Most recent labs reviewed.
Micro Results:
09/22/24 19:32 Respiratory Culture - Preliminary
Sputum Usual Respiratory Dominick
Gram Stain - Preliminary
09/23/24 11:27 Body Fluid Culture - Preliminary
Pleural Fluid No Growth After 18-24 Hours
Gram Stain - Preliminary
09/22/24 12:05 Respiratory Culture - Final
Sputum Usual Respiratory Dominick
Gram Stain - Final
09/22/24 08:53 Blood Culture - Preliminary
Blood/Venous No Growth in 48 hours- Final report to follow
09/22/24 08:39 Blood Culture - Preliminary
Blood/Venous No Growth in 48 hours- Final report to follow
09/23/24 11:27 Fungal Culture - Preliminary
Pleural Fluid Culture in progress.
Positive cultures are reported as soon as detected.
Final report to follow in four to five weeks.
09/23/24 11:27 Acid Fast Bacilli Smear - Pending
Pleural Fluid Acid Fast Bacilli Culture - Pending
09/23/24 07:41 Influenza Type A (PCR) - Final
Nasalpharynx Not Detected
Influenza Type A (H1) (PCR) - Final
Not Detected
Influenza Type A (H3) (PCR) - Final
Not Detected
Influenza Type B (PCR) - Final
Not Detected
Resp Syncytial Virus Type A (PCR) - Final
DETECTED
Resp Syncytial Virus Type B (PCR) - Final
Not Detected
Adenovirus DNA (PCR) - Final
Not Detected
Human Metapneumovirus (PCR) - Final
Not Detected
Parainfluenza Virus Type 1 (PCR) - Final
Not Detected
Parainfluenza Virus Type 2 (PCR) - Final
Not Detected
Parainfluenza Virus Type 3 (PCR) - Final
Not Detected
Parainfluenza Virus Type 4 - Final
Not Detected
Rhinovirus (PCR) - Final
Not Detected
09/22/24 12:05 Legionella Urinary Antigen - Final
Urine Negative for Legionella pneumophila Serogroup 1 antigen.
A negative result does not rule out the possiblity of
Legionella infection due to other serogroups or species of
Legionella. Clinical correlation is recommended.
Streptococcus pneumoniae Antigen (M - Final
Negative for Streptococcus pneumoniae antigen.
A negative result does not exclude infection with
Streptococcus pneumoniae. Clinical correlation is
recommended.
09/22/24 08:53 Influenza Types A & B (LUIS) - Final
Nasal Swab Negative for Influenza A & B, NAAT
Negative results must be combined with clinical observations
and patient history.
Nucleic Acid Amplification test (NAAT)performed on the
[facility] platform.
Imaging:
09/22/2024 CT chest: No CTA evidence for an acute pulmonary thromboembolism. Irregular soft tissue encasing the left hilum most in keeping with the patient's known lung cancer and probable posttreatment related changes. Small to moderate left
basilar pleural effusion with diffuse pleural thickening. Similar appearance compared to the previous chest CT from 09/03/2024, but superimposed infection/empyema would be difficult to exclude. Multiple other findings essentially unchanged from the
prior chest CT.
--- NOTE | 2024-09-24 13:33 | CM ---
Patient seen at bedside with daughter present. Patient daughter at bedside is not daughter she lives with. Patient PCP is Dr. Lesly Chavez and she uses the [facility] [place]. Patient has [facility] at home for PT/OT at this time. Patient has home O2
concentrator and innogen that she states she owns. Patient has no other DME. Patient plan is for discharged home with referral to [facility]. Patient home is a 2 story home per patient. CM will continue to follow for discharge planning needs.
Plan; home with [facility] at [facility] for other Needs/SNF?
--- NOTE | 2024-09-24 13:51 | W.PN.HOSP.TC ---
Today's Communication/Plan
-
Continue IV antibiotics
Follow cultures from 09/23/2024
Wean oxygen for SpO2 >90%
ID and pulmonary recs appreciated
Assessment / Plan
Assessment / Plan
#Acute on chronic hypoxemic respiratory failure
#Acute Bronchitis +/- Community-acquired pneumonia
#Left-sided exudative pleural effusion
#RSV positive
-Multifactorial process with pneumonia and RSV, pleural effusion; question of postobstructive pneumonia
-Uses 2 L as needed chronically for lung scarring associated with chemotherapy and radiation in the past
-Head CT PE at time of admission that was negative for pulmonary thromboemboli, redemonstrated known lung mass
-There was question of empyema/parapneumonic effusion though no pus on drainage, fluid studies not consistent
-Failed outpatient antibiotics with doxycycline started on IV vancomycin and Zosyn here
-As of morning 09/24 remains on 4 L oxygen with SpO2 near 99%
-Spoke with IR, no plans for chest tube as of now
-Pulm and ID following
Plan
-Continue broad-spectrum antibiotic follow blood/sputum/pleural fluid cultures
-Continue with antitussive therapy and Mucinex, consider saline nebs
-Continue with as needed nebulizers/bronchodilator
-Monitor for reaccumulation of effusion
-Supportive care for RSV
-Wean oxygen for SpO2 goal >90%
-Trend CBC and Temp
#Acute kidney injury
-BMP this morning showed creatinine up from 0.7-1.3
-Suspect that this is prerenal, related with reduced intake and malignancy
-No hypotension recorded though blood pressure did get soft later on 09/23
-No signs of obstructive uropathy; not currently on nephrotoxic agent
Plan
-Start maintenance IVF and trend BMP and UOP
-Consider renal/bladder ultrasound
-Monitor vitals, avoid hypotension
-Avoid unnecessary nephrotoxins
#Lung cancer
-Unclear histopathological diagnosis, diagnosed 13 years ago, follows with [facility]
-Current regimen includes pemetrexed and Avastin, initiated 3 weeks prior to arrival here
-Noted to have secondary scar tissue from previous radiation/chemotherapy/immunotherapy
-Plans to follow-up with [facility] after discharge
#Hypertension
-No known history of hypertensive systemic disease
-Home regimen includes metoprolol succinate and spironolactone
-Blood pressure here well-controlled
#GERD
-Home regimen includes famotidine as needed
-No known history of Maddox's esophagus or erosive disease
DVT prophylaxis: Lovenox
Diet: Regular
CODE STATUS: DNR
Anticipated Discharge: 24 - 48 hours
Subjective/Interval History
-
Date of Service: September 24, 2024
Seen and examined at the bedside. No acute events reported overnight. AFVSS on 4 L oxygen this
Patient complains of hearing rhonchi in her chest when lying down though states her breathing is better.
Denies any new complaints as of this morning.
Objective Data
-
Labs:
Laboratory Results
09/24/24
06:06
Sodium 135
Potassium 3.1 L
Chloride 98
Carbon Dioxide 27
BUN 17
Creatinine 1.3 H
Glucose 132 H
Calcium 9.5
Vital Signs:
Vital Signs
Temp Pulse Resp BP Pulse Ox
100.2 F 97 22 116/80 97
09/24/24 11:00 09/24/24 11:00 09/24/24 11:00 09/24/24 11:00 09/24/24 11:00
I&O
09/23/24 09/24/24 09/25/24
06:59 06:59 06:59
Intake Total 960 / 960
Balance 960 / 960
Review of Systems
-
History Source: Patient
All other systems: Reviewed and negative
Physical Exam
-
General: Well Developed, Well Nourished and No Apparent Distress
HEENT: Normocephalic, Atraumatic and Moist Mucous Membranes
Respiratory: Rhonchi and Non Labored Respirations; Negative Wheezes, Rales or Accessory Resp Muscle Use
Cardiac: Regular Rhythm and S1/S2; Negative Murmur, Rub, JVD or Gallop
GI: Soft, Nontender, Nondistended and Normal Bowel Sounds
Musculoskeletal: No Clubbing, No Cyanosis and No Edema
Skin: Warm, Dry and Normal Turgor; Negative Rash
Neuro: AO x 3 and Nonfocal/Grossly Intact
Psych: Calm
Data Reviewed
-
Labs: Labs Reviewed by me, Discussed with Patient and Discussed with Family
--- NOTE | 2024-09-24 13:53 | W.PN.PUL3 ---
Today's Communication / Plan
-
Remains on 4L NC, home O2 eval noted
If cultures are negative, would d/c abx
Effusion likely consistent with known contralateral mets
PT/OT, SNF eval
If doing well can consider d/c planning and OP [facility] FU for further steps on her cancer treatments
Assessment
-
73-year-old female with a past medical history of metastatic lung cancer on chemotherapy with history of XRT/chemotherapy/immunotherapy, hypertension and anxiety who presents with worsening cough and shortness of breath. She was recently on
doxycycline for bronchitis but she was not improving so she came to the hospital. Imaging shows a left-sided pleural effusion with diffuse pleural thickening with an irregular soft tissue lesion encasing the left hilum, keeping with her history of
lung cancer. Also no evidence of an acute PE. Overall, CT chest is relatively similar to recent CT chest from 09/03/2024 when she was in the ER for left-sided flank/back pain. Here in the ER she was febrile to 102.2 �F, was tachypneic and
tachycardic. Labs show worsening leukocytosis compared to when she was recently here in the ER. She was started on antibiotics in the ER, given 1 L of normal saline and admitted to telemetry. Hospitalist service now consulting pulmonary for
additional management/recommendations.
Fevers, shortness of breath, and leukocytosis due to sepsis from RSV pneumonia
Possible post-obstructive PNA from known L-sided perihilar lung cancer
Left sided complex pleural effusion with surrounding pleural thickening- suspected malignant effusion
Chronic, reportedly had thoracentesis in past
Acute respiratory failure with hypoxia due to above
Leukocytosis with monocytosis
Hypochloremic, hyponatremia likely due to reduced PO intake with early satiety
Metastatic lung cancer s/p chemo/XRT, currently on chemotherapy every 3 weeks for the past 1 year, per patient (they follow at [facility])
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
Metastatic lung cancer on active chemotherapy every 3 weeks for approximately the last year
Follows at [facility]; history of XRT/chemotherapy/immunotherapy
Diagnosed 13 years ago with recurrence approximately 4 years ago
History of right upper lobectomy
Hypertension
Anxiety
Hiatal hernia
Plan:
She is currently on 4L NC now
Home O2 eval placed
Patient has a left lower lobe pleural effusion that the patient says is chronic, and evidence of a left perihilar lesion which correlates with her history of lung cancer
Reviewed her CTA chest from 09/22/2024 and she has extrinsic compression of her left upper lobe bronchus + left lower lobe bronchus from this perihilar mass.
There also appears to be a medial left lower lobe consolidation with opacification in the left lower lobe and also other patchy opacities in the medial right lower lobe.
According to the patient she has had 16 thoracentesis procedures at [facility]--she notes this is consistent with known mets on the contralateral side
Given her elevated white count, immunocompromised state and fever, need to rule out empyema --> no empyema seen on thoracentesis from 09/23/2024
20cc of dark bloody fluid seen and sent for fluid studies; no chest tube needed at this time
Follow up pleural fluid cultures + cytopathology from [facility] on 09/23
For now continue treating her for a suspected pneumonia, possibly postobstructive--if culture negative would stop abx
ID currently on board, and patient on Zosyn/vancomycin
Follow-up blood cultures, and respiratory cultures (all collected 09/22/2024)
Trend WBC and monitor fever curve
She is also positive for RSV on RV-panel, and this could be a large contributor to her current symptoms
Continue supportive care
Maintain SpO2 >90-94% with supplemental oxygen and wean as tolerated
Continue aspiration precautions
Continue DuoNebs QID with prn Xopenex
Continue Mucinex
Ambulatory pulse oximetry prior to discharge
PT/OT, likely to need SNF
DVT ppx: LMWH
Code status: DNR/DNI
Pulmonary service will continue to follow along.
Discharge planning in place
FU to [facility] as OP
Data:
CXR 09/23/24- Lung volumes are low. Skull partially obscures the apices. There is increased thoracic kyphosis as seen previously. There is small left pleural effusion with adjacent atelectasis, unchanged from the prior exam. No pneumothorax post left
thoracentesis. There is abnormal left parahilar airspace opacity as seen prior related to known malignancy and posttreatment changes. Right lung remains clear.
CTA chest 09/22/2024: No CTA evidence for an acute pulmonary thromboembolism. Irregular soft tissue encasing the left hilum most in keeping with the patient's known lung cancer and probable posttreatment related changes. Small to moderate left basilar
pleural effusion with diffuse pleural thickening. Similar appearance compared to the previous chest CT from 09/03/2024, but superimposed infection/empyema would be difficult to exclude.
ECHO 02/13/24- Normal left ventricular chamber size. Normal left ventricular systolic function. Normal regional wall motion. Mild concentric left ventricular hypertrophy. Left ventricular ejection fraction is 50-55%. Normal diastolic function. Normal
right ventricular size and function. Mitral valve opens normally. Trace mitral regurgitation. Mitral annular calcification. Trileaflet aortic valve. Aortic valve opens normally. Mild aortic regurgitation. Tricuspid valve opens normally. Trace
tricuspid regurgitation. Estimated pulmonary artery pressure of 25-30 mmHg. Assuming a right atrial pressure of 3 mmHg.
-----
Total time spent today was 52 minutes for this encounter. Time includes reviewing laboratory test/imaging results, reviewing pertinent medical records, obtaining and reviewing medical history, performing an appropriate exam, ordering medications,
tests and procedures. Time also includes documentation of this encounter, coordinating patient care and communicating with other healthcare professionals. Total time does not include separately billed tests performed on this date of service.
Subjective Data
-
Date of Service:
Date of Service: September 24, 2024
Chief Complaint: Pulmonary Follow Up
Subjective:
Chronic SOB ongoing, no different post procedure
Maintained on 4L NC, uses O2 occasionally at home
No new complaints
Objective Data
Data Reviewed
Vital Signs / I&O / Oxygen:
Vital Signs
Temp Pulse Resp BP Pulse Ox
100.2 F 97 22 116/80 97
09/24/24 11:00 09/24/24 11:00 09/24/24 11:00 09/24/24 11:00 09/24/24 11:00
Intake and Output
09/23/24 09/24/24 09/25/24
06:59 06:59 06:59
Intake Total 960 / 960
Balance 960 / 960
SaO2 97
Nasal Cannula flow liters per 4
minute
Physical Exam
General: Respiratory Distress (negative), Comfortable, Chills (negative) and Sweats (negative)
HEENT: Normocephalic, Anicteric and Moist Mucous Membranes
Cardiovascular: S1-S2, Regular Rhythm and Peripheral Edema (negative)
Respiratory: Wheeze ([place] bilaterally), Crackles (Left base), Rhonchi (negative), Accessory Resp Muscle Use (negative), Stridor (negative) and Other (Diminished breath sounds bilaterally (L >R))
GI: Soft, Non Distended, Non Tender and Normal Bowel Sounds
Neurology: AO x 3 and Tremors (negative)
Skin: Warm, Dry, Cyanosis (negative) and Jaundice (negative)
Labs/Micro/Reports
Lab Data
09/23/24 06:00
09/24/24 06:06
Microbiology
09/22/24 19:32 Sputum Respiratory Culture - Preliminary
Usual Respiratory Melissa
09/22/24 19:32 Sputum Gram Stain - Preliminary
09/23/24 11:27 Pleural Fluid Body Fluid Culture - Preliminary
No Growth After 18-24 Hours
09/23/24 11:27 Pleural Fluid Gram Stain - Preliminary
09/22/24 12:05 Sputum Respiratory Culture - Final
Usual Respiratory Melissa
09/22/24 12:05 Sputum Gram Stain - Final
09/22/24 08:53 Blood/Venous Blood Culture - Preliminary
No Growth in 48 hours- Final report to follow
09/22/24 08:39 Blood/Venous Blood Culture - Preliminary
No Growth in 48 hours- Final report to follow
09/23/24 11:27 Pleural Fluid Fungal Culture - Preliminary
Culture in progress.
Positive cultures are reported as soon as detected.
Final report to follow in four to five weeks.
09/23/24 07:41 Nasalpharynx Influenza Type A (PCR) - Final
Not Detected
09/23/24 07:41 Nasalpharynx Influenza Type A (H1) (PCR) - Final
Not Detected
09/23/24 07:41 Nasalpharynx Influenza Type A (H3) (PCR) - Final
Not Detected
09/23/24 07:41 Nasalpharynx Influenza Type B (PCR) - Final
Not Detected
09/23/24 07:41 Nasalpharynx Resp Syncytial Virus Type A (PCR) - Final
DETECTED
09/23/24 07:41 Nasalpharynx Resp Syncytial Virus Type B (PCR) - Final
Not Detected
09/23/24 07:41 Nasalpharynx Adenovirus DNA (PCR) - Final
Not Detected
09/23/24 07:41 Nasalpharynx Human Metapneumovirus (PCR) - Final
Not Detected
09/23/24 07:41 Nasalpharynx Parainfluenza Virus Type 1 (PCR) - Final
Not Detected
09/23/24 07:41 Nasalpharynx Parainfluenza Virus Type 2 (PCR) - Final
Not Detected
09/23/24 07:41 Nasalpharynx Parainfluenza Virus Type 3 (PCR) - Final
Not Detected
09/23/24 07:41 Nasalpharynx Parainfluenza Virus Type 4 - Final
Not Detected
09/23/24 07:41 Nasalpharynx Rhinovirus (PCR) - Final
Not Detected
09/22/24 12:05 Urine Legionella Urinary Antigen - Final
Negative for Legionella pneumophila Serogroup 1 antigen.
A negative result does not rule out the possiblity of
Legionella infection due to other serogroups or species of
Legionella. Clinical correlation is recommended.
09/22/24 12:05 Urine Streptococcus pneumoniae Antigen (M - Final
Negative for Streptococcus pneumoniae antigen.
A negative result does not exclude infection with
Streptococcus pneumoniae. Clinical correlation is
recommended.
09/22/24 08:53 Nasal Swab Influenza Types A & B (LUIS) - Final
Negative for Influenza A & B, NAAT
Negative results must be combined with clinical observations
and patient history.
Nucleic Acid Amplification test (NAAT)performed on the
[employer] platform.
[2024-09-24] MEDS: ZOSYN IV (14:42)
[2024-09-24 15:01] VITALS: BMI 24.6
[2024-09-24 15:25] VITALS: BP 114/64
[2024-09-24] MEDS: DUONEB INH (17:40)
[2024-09-24] MEDS: LOVENOX 40 MG SC (17:57)
[2024-09-24 19:00] VITALS: BP 142/82
[2024-09-24] MEDS: MELATONIN 5 MG PO (20:07)
[2024-09-24] MEDS: LOPRESSOR 25 MG PO (20:07)
[2024-09-24] MEDS: PHENERGAN WITH CODEINE SYRUP 5 ML PO (21:43)
[2024-09-24 23:00] VITALS: BP 122/74
[2024-09-25] VITALS (8 sets, daily range): BP systolic 114–140; BP diastolic 59–86; PULSE 110; O2SAT 94; BMI 24.5
[2024-09-25] MEDS: PHENERGAN WITH CODEINE SYRUP 5 ML PO (03:20)
[2024-09-25] MEDS: XOPENEX 1.25 MG INHALANT SOLUTION INH (03:50)
[2024-09-25] MEDS: TESSALON PERLES 200 MG PO ×2 (04:50→23:01)
[2024-09-25 06:59] LABS: Hematocrit 30.8 % (37.0-47.0); Hemoglobin 10.5 g/dL (12.0-16.0); Mean Corp Hgb Conc. 34.1 g/dL (33.0-37.0); Mean Corpuscular Hgb 32.8 pg (27.0-31.0); Mean Corpuscular Volume 96.3 fL (81.0-99.0); Mean Platelet Volume 9.9 fL (7.4-10.4); Platelet Count 141 10^3/uL (130-400); Red Cell Dist. Width 17.6 % (11.5-14.5); White Blood Cell Count 30.9 10^3/uL (4.8-10.8)
[2024-09-25] MEDS: LR 1000 IV ×2 (07:06→17:00)
[2024-09-25 07:47] LABS: Blood Urea Nitrogen 15 mg/dl (7-17); Calcium 9.2 mg/dl (8.4-10.2); Carbon Dioxide 25 mmol/L (22-30); Chloride 102 mmol/L (98-107); Estimated Creatinine Clearance 49 ml/min; Glucose 109 mg/dl (70-99); Magnesium 1.9 mg/dl (1.6-2.3); Potassium 3.5 mmol/L (3.5-5.1); Sodium 137 mmol/L (135-145); eGFR 58.75
[2024-09-25] MEDS: MAGIC OR MIRACLE MOUTHWASH 5 ML PO ×4 (07:50→21:13)
[2024-09-25] MEDS: PEPCID 10 MG PO ×2 (07:50→21:11)
[2024-09-25] MEDS: MUCINEX 1200 MG PO ×2 (07:50→21:10)
[2024-09-25] MEDS: ALDACTONE 50 MG PO (07:51)
[2024-09-25] MEDS: REFRESH EYE DROPS (PF) 1 DROPS BOTH EYES (07:51)
[2024-09-25 07:56] LABS: Absolute Neutrophils -Man Diff 8.9 10^3/uL (1.4-6.5); Band Neutrophils 0 % (0-3); Lymphocytes 15 % (20-51); Monocytes 56 % (2-9); Platelets Checked Yes; Segmented Neutrophils 29 % (42-75)
[2024-09-25 07:57] LABS: Normal RBC Morphology Yes; Total Cells Counted 100
--- NOTE | 2024-09-25 11:22 | PN.CDI ---
CDI
- -
CDI:
Physician Documentation Request
Admit Date: 09/22/24 12:11
Dear Doctor Paramjit,
Patient admitted with sepsis.
Na levels documented below:
Patient received IV NSS .
Laboratory Tests
09/22/24 09/23/24 09/24/24
08:38 07:33 06:06
Sodium 131 L 132 L 135
Based on the above, please clarify in the progress notes, the appropriate diagnosis, if significant, that supports the above abnormalities and additional evaluation, monitoring and/or treatment rendered:
Hyponatremia
Insignificant abnormal lab findings
Other
Use of terms such as suspected, likely, concern for, or probable (associated with a specific diagnosis that is being evaluated, monitored, or treated as if it exists) are acceptable and can be coded in the inpatient setting, when documented at the
time of discharge.
Thank you,
Sofia MORAN,RN,CCDS
CDI Specialist
Available via [employer] text
Please use your independent medical judgment in providing your response.
[2024-09-25] MEDS: TYLENOL 650 MG PO ×2 (11:23→23:01)
--- NOTE | 2024-09-25 11:25 | W.PN.PUL3 ---
Today's Communication / Plan
-
Home O2 eval placed--93% on RA, 91% on RA with ambulation
Reviewed results with patient, she feels her ambulatory limitations are due to back pain
Would benefit from SNF placement, pain control with tylenol
Discharge planning per team, awaiting placement
We will sign off at this time, please call with questions
Assessment
-
73-year-old female with a past medical history of metastatic lung cancer on chemotherapy with history of XRT/chemotherapy/immunotherapy, hypertension and anxiety who presents with worsening cough and shortness of breath. She was recently on
doxycycline for bronchitis but she was not improving so she came to the hospital. Imaging shows a left-sided pleural effusion with diffuse pleural thickening with an irregular soft tissue lesion encasing the left hilum, keeping with her history of
lung cancer. Also no evidence of an acute PE. Overall, CT chest is relatively similar to recent CT chest from 09/03/2024 when she was in the ER for left-sided flank/back pain. Here in the ER she was febrile to 102.2 �F, was tachypneic and
tachycardic. Labs show worsening leukocytosis compared to when she was recently here in the ER. She was started on antibiotics in the ER, given 1 L of normal saline and admitted to telemetry. Hospitalist service now consulting pulmonary for
additional management/recommendations.
Fevers, shortness of breath, and leukocytosis due to sepsis from RSV pneumonia
Possible post-obstructive PNA from known L-sided perihilar lung cancer
Left sided complex pleural effusion with surrounding pleural thickening- suspected malignant effusion
Chronic, reportedly had thoracentesis in past
Acute respiratory failure with hypoxia due to above
Leukocytosis with monocytosis
Hypochloremic, hyponatremia likely due to reduced PO intake with early satiety
Metastatic lung cancer s/p chemo/XRT, currently on chemotherapy every 3 weeks for the past 1 year, per patient (they follow at [facility])
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
Metastatic lung cancer on active chemotherapy every 3 weeks for approximately the last year
Follows at [facility]; history of XRT/chemotherapy/immunotherapy
Diagnosed 13 years ago with recurrence approximately 4 years ago
History of right upper lobectomy
Hypertension
Anxiety
Hiatal hernia
Plan:
She is currently on 4L NC now
Home O2 eval placed--93% on RA, 91% on RA with ambulation
Patient has a left lower lobe pleural effusion that the patient says is chronic, and evidence of a left perihilar lesion which correlates with her history of lung cancer
Reviewed her CTA chest from 09/22/2024 and she has extrinsic compression of her left upper lobe bronchus + left lower lobe bronchus from this perihilar mass.
There also appears to be a medial left lower lobe consolidation with opacification in the left lower lobe and also other patchy opacities in the medial right lower lobe.
According to the patient she has had 16 thoracentesis procedures at [facility]--she notes this is consistent with known mets on the contralateral side
Given her elevated white count, immunocompromised state and fever, need to rule out empyema --> no empyema seen on thoracentesis from 09/23/2024
20cc of dark bloody fluid seen and sent for fluid studies; no chest tube needed at this time
Follow up pleural fluid cultures + cytopathology from [facility] on 09/23
For now continue treating her for a suspected pneumonia, possibly postobstructive--if culture negative would stop abx
ID currently on board, and patient on Zosyn/vancomycin
Follow-up blood cultures, and respiratory cultures (all collected 09/22/2024)
Trend WBC and monitor fever curve
She is also positive for RSV on RV-panel, and this could be a large contributor to her current symptoms
Continue supportive care
Maintain SpO2 >90-94% with supplemental oxygen and wean as tolerated
Continue aspiration precautions
Continue DuoNebs QID with prn Xopenex
Continue Mucinex
Ambulatory pulse oximetry prior to discharge
PT/OT, likely to need SNF
DVT ppx: LMWH
Code status: DNR/DNI
Pulmonary service will continue to follow along.
Discharge planning in place
FU to [facility] as OP
Data:
CXR 09/23/24- Lung volumes are low. Skull partially obscures the apices. There is increased thoracic kyphosis as seen previously. There is small left pleural effusion with adjacent atelectasis, unchanged from the prior exam. No pneumothorax post left
thoracentesis. There is abnormal left parahilar airspace opacity as seen prior related to known malignancy and posttreatment changes. Right lung remains clear.
CTA chest 09/22/2024: No CTA evidence for an acute pulmonary thromboembolism. Irregular soft tissue encasing the left hilum most in keeping with the patient's known lung cancer and probable posttreatment related changes. Small to moderate left basilar
pleural effusion with diffuse pleural thickening. Similar appearance compared to the previous chest CT from 09/03/2024, but superimposed infection/empyema would be difficult to exclude.
ECHO 02/13/24- Normal left ventricular chamber size. Normal left ventricular systolic function. Normal regional wall motion. Mild concentric left ventricular hypertrophy. Left ventricular ejection fraction is 50-55%. Normal diastolic function. Normal
right ventricular size and function. Mitral valve opens normally. Trace mitral regurgitation. Mitral annular calcification. Trileaflet aortic valve. Aortic valve opens normally. Mild aortic regurgitation. Tricuspid valve opens normally. Trace
tricuspid regurgitation. Estimated pulmonary artery pressure of 25-30 mmHg. Assuming a right atrial pressure of 3 mmHg.
-----
Total time spent today was 50 minutes for this encounter. Time includes reviewing laboratory test/imaging results, reviewing pertinent medical records, obtaining and reviewing medical history, performing an appropriate exam, ordering medications,
tests and procedures. Time also includes documentation of this encounter, coordinating patient care and communicating with other healthcare professionals. Total time does not include separately billed tests performed on this date of service.
Subjective Data
-
Date of Service:
Date of Service: September 25, 2024
Chief Complaint: Pulmonary Follow Up
Subjective:
Complains of back pain, not ambulating due to pain
Home O2 eval showing no need for O2
Objective Data
Data Reviewed
Vital Signs / I&O / Oxygen:
Vital Signs
Temp Pulse Resp BP Pulse Ox
98.8 F 104 16 131/81 95
09/25/24 07:53 09/25/24 07:53 09/25/24 07:53 09/25/24 07:53 09/25/24 07:53
Intake and Output
09/24/24 09/25/24 09/26/24
06:59 06:59 06:59
Intake Total 960 / 960 1440 / 1440
Balance 960 / 960 1440 / 1440
SaO2 95
Nasal Cannula flow liters per 2
minute
Physical Exam
General: Respiratory Distress (negative), Comfortable, Chills (negative) and Sweats (negative)
HEENT: Normocephalic, Anicteric and Moist Mucous Membranes
Cardiovascular: S1-S2, Regular Rhythm and Peripheral Edema (negative)
Respiratory: Wheeze ([place] bilaterally), Crackles (Left base), Rhonchi (negative), Accessory Resp Muscle Use (negative), Stridor (negative) and Other (Diminished breath sounds bilaterally (L >R))
GI: Soft, Non Distended, Non Tender and Normal Bowel Sounds
Neurology: AO x 3, No Motor Deficits and Tremors (negative)
Skin: Warm, Dry, Cyanosis (negative) and Jaundice (negative)
Labs/Micro/Reports
Lab Data
09/25/24 05:56
09/25/24 05:57
Microbiology
09/22/24 08:53 Blood/Venous Blood Culture - Preliminary
No Growth in 72 hours- Final report to follow
09/22/24 08:39 Blood/Venous Blood Culture - Preliminary
No Growth in 72 hours- Final report to follow
09/22/24 19:32 Sputum Respiratory Culture - Preliminary
Usual Respiratory Melissa
09/22/24 19:32 Sputum Gram Stain - Preliminary
09/23/24 11:27 Pleural Fluid Body Fluid Culture - Preliminary
No Growth After 18-24 Hours
09/23/24 11:27 Pleural Fluid Gram Stain - Preliminary
09/22/24 12:05 Sputum Respiratory Culture - Final
Usual Respiratory Melissa
09/22/24 12:05 Sputum Gram Stain - Final
09/23/24 11:27 Pleural Fluid Fungal Culture - Preliminary
Culture in progress.
Positive cultures are reported as soon as detected.
Final report to follow in four to five weeks.
09/23/24 07:41 Nasalpharynx Influenza Type A (PCR) - Final
Not Detected
09/23/24 07:41 Nasalpharynx Influenza Type A (H1) (PCR) - Final
Not Detected
09/23/24 07:41 Nasalpharynx Influenza Type A (H3) (PCR) - Final
Not Detected
09/23/24 07:41 Nasalpharynx Influenza Type B (PCR) - Final
Not Detected
09/23/24 07:41 Nasalpharynx Resp Syncytial Virus Type A (PCR) - Final
DETECTED
09/23/24 07:41 Nasalpharynx Resp Syncytial Virus Type B (PCR) - Final
Not Detected
09/23/24 07:41 Nasalpharynx Adenovirus DNA (PCR) - Final
Not Detected
09/23/24 07:41 Nasalpharynx Human Metapneumovirus (PCR) - Final
Not Detected
09/23/24 07:41 Nasalpharynx Parainfluenza Virus Type 1 (PCR) - Final
Not Detected
09/23/24 07:41 Nasalpharynx Parainfluenza Virus Type 2 (PCR) - Final
Not Detected
09/23/24 07:41 Nasalpharynx Parainfluenza Virus Type 3 (PCR) - Final
Not Detected
09/23/24 07:41 Nasalpharynx Parainfluenza Virus Type 4 - Final
Not Detected
09/23/24 07:41 Nasalpharynx Rhinovirus (PCR) - Final
Not Detected
09/22/24 12:05 Urine Legionella Urinary Antigen - Final
Negative for Legionella pneumophila Serogroup 1 antigen.
A negative result does not rule out the possiblity of
Legionella infection due to other serogroups or species of
Legionella. Clinical correlation is recommended.
09/22/24 12:05 Urine Streptococcus pneumoniae Antigen (M - Final
Negative for Streptococcus pneumoniae antigen.
A negative result does not exclude infection with
Streptococcus pneumoniae. Clinical correlation is
recommended.
09/22/24 08:53 Nasal Swab Influenza Types A & B (LUIS) - Final
Negative for Influenza A & B, NAAT
Negative results must be combined with clinical observations
and patient history.
Nucleic Acid Amplification test (NAAT)performed on the
[employer] platform.
--- NOTE | 2024-09-25 11:38 | W.PN.HOSP.TC ---
Addendum entered and electronically signed by Scott Yusuf DO 09/26/24 10:52:
CDI: Mild hyponatremia, clinically insignificant to presentation and hospital course
Original Note:
Today's Communication/Plan
-
Continue bronchodilators mucolytic's
Supportive care for RSV
SpO2 goal >90%
Placement to SNF
Assessment / Plan
Assessment / Plan
#Acute on chronic hypoxemic respiratory failure
#Left-sided exudative pleural effusion
#Acute Bronchitis
#RSV positive
-Multifactorial process with pneumonia and RSV, pleural effusion; question of postobstructive pneumonia
-Uses 2 L as needed chronically for lung scarring associated with chemotherapy and radiation in the past
-Head CT PE at time of admission that was negative for pulmonary thromboemboli, redemonstrated known lung mass
-There was question of empyema/parapneumonic effusion though no pus on drainage, fluid studies not consistent
-Infectious disease discontinued antibiotics on 09/24; no recurrent fevers and white cells continue to downtrend
-Currently on low level of oxygen with SpO2 mid to high 90s
-Pulm and ID following
Plan
-Continue with antitussive therapy and Mucinex, consider saline nebs
-Continue with as needed nebulizers/bronchodilator
-Monitor for reaccumulation of effusion
-Supportive care for RSV
-Wean oxygen for SpO2 goal >90%
-Trend CBC and Temp
#Prerenal acute kidney injury
-BMP showed creatinine up from 0.7-1.3
-No signs of obstructive uropathy; not currently on nephrotoxic agent
-Resolved with IV fluids
#Lung cancer
-Unclear histopathological diagnosis, diagnosed 13 years ago, follows with [facility]
-Current regimen includes pemetrexed and Avastin, initiated 3 weeks prior to arrival here
-Noted to have secondary scar tissue from previous radiation/chemotherapy/immunotherapy
-Plans to follow-up with [facility] after discharge
#Hypertension
-No known history of hypertensive systemic disease
-Home regimen includes metoprolol succinate and spironolactone
-Blood pressure here well-controlled
#GERD
-Home regimen includes famotidine as needed
-No known history of Maddox's esophagus or erosive disease
DVT prophylaxis: Lovenox
Diet: Regular
CODE STATUS: DNR
Anticipated Discharge: Within 24 hours
Subjective/Interval History
-
Date of Service: September 25, 2024
Seen and examined at the bedside. No acute events reported overnight. AFVSS on 2 L O2 this morning, SpO2 95%
White cell count downtrending, from 40 yesterday to 30 today.
Continues to have significant productive cough though she denies any new complaints as of this morning
Objective Data
-
Labs:
Laboratory Results
09/25/24 09/25/24
05:56 05:57
WBC 30.9 H
Hgb 10.5 L
Hct 30.8 L
Plt Count 141
Sodium 137
Potassium 3.5
Chloride 102
Carbon Dioxide 25
BUN 15
Creatinine 1.0
Glucose 109 H
Calcium 9.2
Vital Signs:
Vital Signs
Temp Pulse Resp BP Pulse Ox
98.9 F 96 18 135/71 97
09/25/24 11:31 09/25/24 11:31 09/25/24 11:31 09/25/24 11:31 09/25/24 11:31
I&O
09/24/24 09/25/24 09/26/24
06:59 06:59 06:59
Intake Total 960 / 960 1440 / 1440
Balance 960 / 960 1440 / 1440
Review of Systems
-
History Source: Patient
All other systems: Reviewed and negative
Physical Exam
-
General: Well Developed, No Apparent Distress and Appears Chronically Ill
HEENT: Normocephalic, Atraumatic, Moist Mucous Membranes and Oxygen
Respiratory: Clear to Auscultation and Non Labored Respirations; Negative Wheezes, Rales, Rhonchi or Accessory Resp Muscle Use
Cardiac: Regular Rhythm and S1/S2; Negative Murmur, Rub or Gallop
GI: Soft, Nontender, Nondistended and Normal Bowel Sounds
Musculoskeletal: No Clubbing, No Cyanosis and No Edema
Skin: Warm, Dry and Normal Turgor; Negative Rash
Neuro: AO x 3 and Nonfocal/Grossly Intact; Negative Tremors
Psych: Calm
Data Reviewed
-
Labs: Labs Reviewed by me and Discussed with Patient
--- NOTE | 2024-09-25 14:54 | W.PN.ID1 ---
Date of Service
Date of Service: September 25, 2024
Today's Communication
Continue with supportive measures.
Assessment / Plan
Acute bronchitis +/- PNA
RSV infection
Shortness of breath
Fever
Leukocytosis ( ?acute vs chronic)
Lung cancer (on Avastin, Alimta)
HTN
Anxiety
Recommendations:
Sputum culture negative, and only reveals normal dominick.
Antibiotics discontinued.
Respiratory viral panel is positive for RSV. Continue contact precautions
- At this time, no antiviral therapy (ribavirin) is indicated given clinical stability of the patient.
Follow white count and temperature curve. Today's WBC improved.
Monitor O2 sats.
Chief Complaint
-: Pneumonia
Subjective / Review of Systems
Review of Systems: No Fever and No Chills
Vital Signs / Physical Exam
Vital Signs
Vital Signs
Temp Pulse Resp BP Pulse Ox
98.9 F 96 18 135/71 97
09/25/24 11:31 09/25/24 11:31 09/25/24 11:31 09/25/24 11:31 09/25/24 11:31
Physical Exam
Constitutional: Comfortable, Chronically Ill and Non-toxic
Eyes: Sclera Anicteric
Pulmonary: Non Labored
Gastrointestinal: Soft and Non Distended
Extremities: Negative Erythema
Neurological: Awake and Alert
Psychological: Calm
Objective Data
Lab Data
Lab Results
09/25/24 05:56
09/25/24 05:57
Estimated Creat Clear 49 ml/min 09/25/24 05:57
Lactic Acid Cancelled 09/22/24 12:45
Total Bilirubin 0.5 mg/dl (0.2-1.3) 09/22/24 08:38
AST 21 U/L (14-36) 09/22/24 08:38
ALT 24 U/L (0-35) 09/22/24 08:38
Alkaline Phosphatase 84 U/L (38-126) 09/22/24 08:38
Most recent labs reviewed.
Micro Results:
09/22/24 19:32 Respiratory Culture - Final
Sputum Ary albicans
Gram Stain - Final
09/23/24 11:27 Body Fluid Culture - Preliminary
Pleural Fluid No Growth After 48 Hours
Gram Stain - Preliminary
09/22/24 08:53 Blood Culture - Preliminary
Blood/Venous No Growth in 72 hours- Final report to follow
09/22/24 08:39 Blood Culture - Preliminary
Blood/Venous No Growth in 72 hours- Final report to follow
09/22/24 12:05 Respiratory Culture - Final
Sputum Usual Respiratory Dominick
Gram Stain - Final
09/23/24 11:27 Fungal Culture - Preliminary
Pleural Fluid Culture in progress.
Positive cultures are reported as soon as detected.
Final report to follow in four to five weeks.
09/23/24 11:27 Acid Fast Bacilli Smear - Pending
Pleural Fluid Acid Fast Bacilli Culture - Pending
09/23/24 07:41 Influenza Type A (PCR) - Final
Nasalpharynx Not Detected
Influenza Type A (H1) (PCR) - Final
Not Detected
Influenza Type A (H3) (PCR) - Final
Not Detected
Influenza Type B (PCR) - Final
Not Detected
Resp Syncytial Virus Type A (PCR) - Final
DETECTED
Resp Syncytial Virus Type B (PCR) - Final
Not Detected
Adenovirus DNA (PCR) - Final
Not Detected
Human Metapneumovirus (PCR) - Final
Not Detected
Parainfluenza Virus Type 1 (PCR) - Final
Not Detected
Parainfluenza Virus Type 2 (PCR) - Final
Not Detected
Parainfluenza Virus Type 3 (PCR) - Final
Not Detected
Parainfluenza Virus Type 4 - Final
Not Detected
Rhinovirus (PCR) - Final
Not Detected
09/22/24 12:05 Legionella Urinary Antigen - Final
Urine Negative for Legionella pneumophila Serogroup 1 antigen.
A negative result does not rule out the possiblity of
Legionella infection due to other serogroups or species of
Legionella. Clinical correlation is recommended.
Streptococcus pneumoniae Antigen (M - Final
Negative for Streptococcus pneumoniae antigen.
A negative result does not exclude infection with
Streptococcus pneumoniae. Clinical correlation is
recommended.
09/22/24 08:53 Influenza Types A & B (LUIS) - Final
Nasal Swab Negative for Influenza A & B, NAAT
Negative results must be combined with clinical observations
and patient history.
Nucleic Acid Amplification test (NAAT)performed on the
[employer] platform.
Imaging:
09/22/2024 CT chest: No CTA evidence for an acute pulmonary thromboembolism. Irregular soft tissue encasing the left hilum most in keeping with the patient's known lung cancer and probable posttreatment related changes. Small to moderate left
basilar pleural effusion with diffuse pleural thickening. Similar appearance compared to the previous chest CT from 09/03/2024, but superimposed infection/empyema would be difficult to exclude. Multiple other findings essentially unchanged from the
prior chest CT.
[2024-09-25] MEDS: LR IV (16:28)
[2024-09-25] MEDS: MAGIC OR MIRACLE MOUTHWASH PO (16:28)
[2024-09-25] MEDS: LOVENOX 40 MG SC (17:00)
[2024-09-25] MEDS: TORADOL 15 MG IV (17:48)
[2024-09-25] MEDS: DUONEB 3 ML INH (18:02)
[2024-09-25] MEDS: MELATONIN 5 MG PO (21:11)
[2024-09-25] MEDS: LOPRESSOR 25 MG PO (21:11)
[2024-09-26] MEDS: PHENERGAN WITH CODEINE SYRUP 5 ML PO (00:43)
[2024-09-26 03:00] VITALS: BP 109/61
[2024-09-26 06:00] VITALS: BMI 24.4
[2024-09-26 06:24] LABS: Hemoglobin 9.3 g/dL (12.0-16.0); Mean Corp Hgb Conc. 34.4 g/dL (33.0-37.0); Mean Corpuscular Hgb 33.2 pg (27.0-31.0); Mean Corpuscular Volume 96.4 fL (81.0-99.0); Mean Platelet Volume 9.5 fL (7.4-10.4); Platelet Count 105 10^3/uL (130-400); Red Cell Dist. Width 17.6 % (11.5-14.5); White Blood Cell Count 23.4 10^3/uL (4.8-10.8)
[2024-09-26 06:38] LABS: Blood Urea Nitrogen 11 mg/dl (7-17); Calcium 8.8 mg/dl (8.4-10.2); Carbon Dioxide 27 mmol/L (22-30); Chloride 102 mmol/L (98-107); Estimated Creatinine Clearance 61 ml/min; Glucose 85 mg/dl (70-99); Potassium 3.4 mmol/L (3.5-5.1); Sodium 138 mmol/L (135-145); eGFR > 60.00
[2024-09-26 07:09] VITALS: BP 141/86
[2024-09-26 07:26] LABS: Absolute Neutrophils -Man Diff 8.1 10^3/uL (1.4-6.5); Anisocytosis 1+; Band Neutrophils 0 % (0-3); Lymphocytes 28 % (20-51); Monocytes 37 % (2-9); Normal RBC Morphology No; Platelets Checked Yes; Polychromasia Slight; Segmented Neutrophils 35 % (42-75)
[2024-09-26 07:27] LABS: Total Cells Counted 100
[2024-09-26] MEDS: ALDACTONE 50 MG PO (07:38)
[2024-09-26] MEDS: TESSALON PERLES 200 MG PO (07:38)
[2024-09-26] MEDS: MUCINEX 1200 MG PO (07:38)
[2024-09-26] MEDS: PEPCID 10 MG PO (07:38)
[2024-09-26] MEDS: TYLENOL 650 MG PO (07:39)
[2024-09-26] MEDS: REFRESH EYE DROPS (PF) 1 DROPS BOTH EYES (07:39)
[2024-09-26] MEDS: MAGIC OR MIRACLE MOUTHWASH 5 ML PO (07:40)
[2024-09-26] MEDS: KLOR-CON 40 MEQ PO (08:39)
[2024-09-26] MEDS: XOPENEX 1.25 MG INHALANT SOLUTION INH (08:54)
--- NOTE | 2024-09-26 09:12 | CM ---
Patient for discharge today. CM sent referral to [facility]. CM spoke with patient daughter Li and sister to transport patient home later today. Patient daughter spoke with Shae burns who was very helpful to set up supports
for patient at home. CM will continue to follow for discharge planning needs.
Plan; home with [facility] and family supports
--- NOTE | 2024-09-26 10:50 | W.PN.HOSP.TC ---
Today's Communication/Plan
-
Continue with nebulizers and mucolytic's
Discharge home
OP follow-up with PCP, oncology
Assessment / Plan
Assessment / Plan
#Acute on chronic hypoxemic respiratory failure
#Left-sided exudative pleural effusion
#Acute Bronchitis
#RSV positive
-Multifactorial process with pneumonia and RSV, pleural effusion; question of postobstructive pneumonia
-Uses 2 L as needed chronically for lung scarring associated with chemotherapy and radiation in the past
-Head CT PE at time of admission that was negative for pulmonary thromboemboli, redemonstrated known lung mass
-There was question of empyema/parapneumonic effusion though no pus on drainage, fluid studies not consistent
-Infectious disease discontinued antibiotics on 09/24; no recurrent fevers and white cells continue to downtrend
-Currently on low level of oxygen with SpO2 mid to high 90s
-Pulm and ID following
Plan
-Continue with antitussive therapy and Mucinex
-Continue with as needed nebulizers/bronchodilator
-Supportive care for RSV
-Wean oxygen for SpO2 goal >90%
-Trend CBC and Temp
#Prerenal acute kidney injury
-BMP showed creatinine up from 0.7-1.3
-No signs of obstructive uropathy; not currently on nephrotoxic agent
-Resolved with IV fluids
#Lung cancer
-Unclear histopathological diagnosis, diagnosed 13 years ago, follows with [facility]
-Current regimen includes pemetrexed and Avastin, initiated 3 weeks prior to arrival here
-Noted to have secondary scar tissue from previous radiation/chemotherapy/immunotherapy
-Plans to follow-up with [facility] after discharge
#Hypertension
-No known history of hypertensive systemic disease
-Home regimen includes metoprolol succinate and spironolactone
-Blood pressure here well-controlled
#GERD
-Home regimen includes famotidine as needed
-No known history of Maddox's esophagus or erosive disease
DVT prophylaxis: Lovenox
Diet: Regular
CODE STATUS: DNR
Anticipated Discharge: Today
Subjective/Interval History
-
Date of Service: September 26, 2024
Seen and examined at the bedside. No acute events reported overnight. AFVSS this morning
She continues to have productive cough that is slightly improved. Denies any shortness of breath this morning
Denies any new complaints today. States she feels ready to go home
Objective Data
-
Labs:
Laboratory Results
09/26/24
05:54
WBC 23.4 H
Hgb 9.3 L
Hct 27.0 L
Plt Count 105 L D
Sodium 138
Potassium 3.4 L
Chloride 102
Carbon Dioxide 27
BUN 11
Creatinine 0.8
Glucose 85
Calcium 8.8
Vital Signs:
Vital Signs
Temp Pulse Resp BP Pulse Ox
100.2 F 96 18 141/86 96
09/26/24 07:09 09/26/24 08:58 09/26/24 08:58 09/26/24 07:09 09/26/24 08:58
I&O
09/25/24 09/26/24 09/27/24
06:59 06:59 06:59
Intake Total 0 / 2280
Balance 2280 / 2280
Review of Systems
-
History Source: Patient
All other systems: Reviewed and negative
Physical Exam
-
General: Well Developed, Well Nourished and No Apparent Distress
HEENT: Normocephalic, Atraumatic and Moist Mucous Membranes
Respiratory: Rhonchi (Left lung, mid to lower) and Non Labored Respirations; Negative Wheezes, Rales or Accessory Resp Muscle Use
Cardiac: Regular Rhythm and S1/S2; Negative Murmur, Rub or Gallop
GI: Soft, Nontender, Nondistended and Normal Bowel Sounds
Musculoskeletal: No Clubbing, No Cyanosis and No Edema
Skin: Warm, Dry and Normal Turgor; Negative Rash
Neuro: AO x 3 and Nonfocal/Grossly Intact
Psych: Calm
Data Reviewed
-
Labs: Labs Reviewed by me and Discussed with Patient
[2024-09-26 11:29] VITALS: BP 122/80
--- NOTE | 2024-09-26 11:59 | W.PN.ID1 ---
Date of Service
Date of Service: September 26, 2024
Today's Communication
For D/C
Assessment / Plan
Acute bronchitis +/- PNA
RSV infection
Shortness of breath
Fever
Leukocytosis ( ?acute vs chronic)
Lung cancer (on Avastin, Alimta)
HTN
Anxiety
Recommendations:
Sputum culture negative, with only reveals normal dominick recovered
Antibiotics discontinued.
Respiratory viral panel is positive for RSV.
- At this time, no antiviral therapy (ribavirin) is indicated given clinical stability of the patient.
For D/C to home with OP F/U with HemeOnc
Chief Complaint
-: Pneumonia (RSV)
Subjective / Review of Systems
Review of Systems: No Fever, No Chills and Cough (occasional; markedly improved from admission)
Vital Signs / Physical Exam
Vital Signs
Vital Signs
Temp Pulse Resp BP Pulse Ox
98.6 F 104 20 122/80 98
09/26/24 11:29 09/26/24 11:29 09/26/24 11:29 09/26/24 11:29 09/26/24 11:29
Physical Exam
Constitutional: Comfortable and Non-toxic
Pulmonary: Non Labored
Gastrointestinal: Non Distended
Neurological: Awake and Alert
Psychological: Calm
Objective Data
Lab Data
Lab Results
09/26/24 05:54
09/26/24 05:54
Estimated Creat Clear 61 ml/min 09/26/24 05:54
Lactic Acid Cancelled 09/22/24 12:45
Total Bilirubin 0.5 mg/dl (0.2-1.3) 09/22/24 08:38
AST 21 U/L (14-36) 09/22/24 08:38
ALT 24 U/L (0-35) 09/22/24 08:38
Alkaline Phosphatase 84 U/L (38-126) 09/22/24 08:38
Most recent labs reviewed.
Micro Results:
09/22/24 08:53 Blood Culture - Preliminary
Blood/Venous No Growth in 4 days- Final report to follow
09/23/24 11:27 Body Fluid Culture - Final
Pleural Fluid No Growth After 72 Hours
Gram Stain - Final
09/22/24 08:39 Blood Culture - Preliminary
Blood/Venous No Growth in 4 days- Final report to follow
09/23/24 11:27 Acid Fast Bacilli Smear - Preliminary
Pleural Fluid Acid Fast Bacilli Culture - Preliminary
09/22/24 19:32 Respiratory Culture - Final
Sputum Ary albicans
Gram Stain - Final
09/22/24 12:05 Respiratory Culture - Final
Sputum Usual Respiratory Dominick
Gram Stain - Final
09/23/24 11:27 Fungal Culture - Preliminary
Pleural Fluid Culture in progress.
Positive cultures are reported as soon as detected.
Final report to follow in four to five weeks.
09/23/24 07:41 Influenza Type A (PCR) - Final
Nasalpharynx Not Detected
Influenza Type A (H1) (PCR) - Final
Not Detected
Influenza Type A (H3) (PCR) - Final
Not Detected
Influenza Type B (PCR) - Final
Not Detected
Resp Syncytial Virus Type A (PCR) - Final
DETECTED
Resp Syncytial Virus Type B (PCR) - Final
Not Detected
Adenovirus DNA (PCR) - Final
Not Detected
Human Metapneumovirus (PCR) - Final
Not Detected
Parainfluenza Virus Type 1 (PCR) - Final
Not Detected
Parainfluenza Virus Type 2 (PCR) - Final
Not Detected
Parainfluenza Virus Type 3 (PCR) - Final
Not Detected
Parainfluenza Virus Type 4 - Final
Not Detected
Rhinovirus (PCR) - Final
Not Detected
09/22/24 12:05 Legionella Urinary Antigen - Final
Urine Negative for Legionella pneumophila Serogroup 1 antigen.
A negative result does not rule out the possiblity of
Legionella infection due to other serogroups or species of
Legionella. Clinical correlation is recommended.
Streptococcus pneumoniae Antigen (M - Final
Negative for Streptococcus pneumoniae antigen.
A negative result does not exclude infection with
Streptococcus pneumoniae. Clinical correlation is
recommended.
09/22/24 08:53 Influenza Types A & B (LUIS) - Final
Nasal Swab Negative for Influenza A & B, NAAT
Negative results must be combined with clinical observations
and patient history.
Nucleic Acid Amplification test (NAAT)performed on the
[employer] platform.
Imaging:
09/22/2024 CT chest: No CTA evidence for an acute pulmonary thromboembolism. Irregular soft tissue encasing the left hilum most in keeping with the patient's known lung cancer and probable posttreatment related changes. Small to moderate left
basilar pleural effusion with diffuse pleural thickening. Similar appearance compared to the previous chest CT from 09/03/2024, but superimposed infection/empyema would be difficult to exclude. Multiple other findings essentially unchanged from the
prior chest CT.
--- NOTE | 2024-09-26 14:23 | W.DCSUMMARY ---
Discharge Summary
Discharge Data
Date of Admission: 09/22/24
Date of Discharge: 09/26/24
Total time spent discharging patient (in min): 35
-
Pending Results: No
Hospital Course
Discharging Physician : Scott Yusuf DO
Disposition : Home
Principal Discharge diagnosis :
Acute on chronic hypoxemic respiratory failure
Malignant pleural effusion
RSV
Chronic Discharge diagnosis :
Chronic hypoxemic respiratory failure (2 L as needed)
Lung cancer currently on chemotherapy and XRT
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
Primary hypertension
Hospital Course : 73-year-old female that presented with shortness of breath and cough as well as fever with temperature at home 102 �F. Noted to have progressively worsening cough that ultimately made it difficult for her to eat. Was productive
in nature however patient unable to clear secretions. Was diagnosed with bronchitis prior to admission but treated with 4 days of doxycycline without improvement. All tested positive for RSV upon arrival. Had CTA chest performed on 09/22/24 that
did not show any PE but did show small to moderate size left pleural effusion. Was treated with IV vancomycin and Zosyn initially. Underwent diagnostic and therapeutic thoracentesis on 09/23/2024 that demonstrated exudative properties per lights
criteria. She did have low pH concerning for parapneumonic effusion. Sputum cultures and pleural fluid cultures ultimately negative and infectious disease recommended discontinuing antibiotics, patient remained stable without fevers or
leukocytosis thereafter. Was treated supportively with bronchodilators and mucolytics, chest physiotherapy during hospitalization. Was titrated down to room air prior to discharge. Recommended to continue on as needed home oxygen and follow-up
with pulmonology and oncology after discharge from the hospital. Was provided prescriptions for Mucinex, lev albuterol, DuoNebs, benzonatate at discharge. Completed antibiotics while in hospital. 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
adenocarcinoma cells of pulmonary origin
Consultants:
Infectious disease -- Gilmer Perry MD
Relay Tester Helper -- Dorina Pitts DO
Oncology -- Carleen Montano MD
Important imaging findings :
CT Chest PE Study (09/22/24)
IMPRESSION: No CTA evidence for an acute pulmonary thromboembolism or aortic dissection. Irregular soft tissue encasing the left hilum most in keeping with the patient's known lung cancer and probable posttreatment related changes. Small to moderate
left basilar pleural effusion with diffuse pleural thickening. Similar appearance compared to the previous chest CT from 09/03/2024, but superimposed infection/empyema would be difficult to exclude. Multiple other findings essentially unchanged from
the prior chest CT.
Procedure findings :
Thoracentesis (09/23/24)
INDICATION: Left pleural effusion, dyspnea. Known chronic effusion, history of left-sided pulmonary malignancy. History of multiple prior thoracenteses.
TECHNIQUE: The risks and benefits of the procedure were discussed with the patient and informed, written consent was obtained. The patient was brought into the angiography suite and positioned upright. A timeout was performed to verify the patient's
identity and the planned procedure. The left posterior chest wall was prepped and draped in the usual sterile fashion. Maximum sterile barrier technique was used throughout.
Ultrasound was used to evaluate the right pleural effusion and plan the approach with access site marked upon the skin. The preliminary ultrasound showed complex left pleural effusion, densely loculated with internal septations. Only small volume
visible anechoic fluid within pockets. Local anesthesia was then administered subcutaneously with 10 cc of 2% lidocaine. Next a 5 Fr [facility] centesis catheter was advanced into the pleural space using trocar technique under direct real-time ultrasound
guidance. Sample was aspirated. There was small volume return. Repositioning of the centesis catheter yielded no additional return.. Catheter was then removed and a dressing was applied.The patient tolerated the procedure well with no immediate
complication.
FINDINGS: Complex left pleural effusion with numerous internal septations. 20 cc dark hemorrhagic pleural fluid evacuated. Samples sent for laboratory studies as requested.
Follow-up: Relay Tester Helper and primary care
Discharge Plan
-
Patient Disposition: Home (Routine Discharge)
Discharge Diagnosis/Procedures: Acute on chronic hypoxemic respiratory failure
Exudative effusion (likely related to lung cancer)
RSV infection
Condition: Fair
Diet: No restrictions
Activity: As tolerated
Driving Restrictions: Not until seen by your Dr
Bathing Restrictions: None
Blood Work: BMP in 1 week to recheck potassium level and electrolytes
Others Tests: None
Other Services: PT
Activity Restrictions/Additional Instructions:
After discharge from the hospital schedule follow-up appointment with your family doctor. Should be seen in the office with 2 weeks of discharge from the hospital
You should follow-up with your oncologist after discharge from the hospital.
Referrals:
Dorina Pitts, DO [Active] - As needed
Lesly Chavez, [Family Provider] -
Additional Discharge Medication Instructions: Use ipratropium�albuterol nebulizers every 6 hours as needed for shortness of breath or wheezing (prescription for nebulizer machine sent as well)
Use levalbuterol inhaler every 6 hours as needed for shortness of breath or wheezing
Continue guaifenesin (Mucinex) 1200 mg every 12 hours for 1 week
Continue benzonatate 200 mg up to 3 times daily as needed for cough
Stop taking doxycycline
Prescriptions:
New
benzonatate 100 mg Capsule
200 mg PO TIDPRN PRN (Reason: Cough) 7 Days Qty: 20 0RF
guaifenesin 600 mg Tablet Extended Release 12hr
1,200 mg PO Q12 7 Days Qty: 28 0RF
levalbuterol HCl 1.25 mg/3 mL Solution For Nebulization
1.25 mg inhalation R Q6HPRN PRN (Reason: sob wheezing) 30 Days Qty: 72 0RF
ipratropium-albuterol 0.5 mg-3 mg(2.5 mg base)/3 mL Solution For Nebulization
3 ml inhalation R QIDPRN PRN (Reason: SOB/wheeze) 30 Days Qty: 90 0RF
(DME) nebulizers [AeroEclipse XL Nebulizer] Misc
See Rx Instructions .Route Qty: 1 0RF
Rx Instructions:
As directed
(DME) nebulizer accessories Kit
See Rx Instructions .Route Qty: 1 0RF
Rx Instructions:
As directed
Continued
spironolactone 25 mg Tablet
50 mg PO HS
ondansetron 4 mg Tablet,Disintegrating
4 mg PO BIDPRN PRN (Reason: nausea/vomiting) Qty: 10 0RF
metoprolol succinate [Toprol XL] 25 mg Tablet Extended Release 24 Hr
25 mg PO HS
famotidine [Pepcid] 20 mg Tablet
20 mg PO DAILYPRN PRN (Reason: gerd)
folic acid 1 mg Tablet
1 mg PO DAILY
Discontinued
doxycycline hyclate 100 mg Capsule
100 mg PO BID
Patient Comments:
patient to start on 09/20/24 for 7 days
Discharge Orders:
Discharge Patient (As Directed); Ordered 09/26/24
Ordered By: Scott Yusuf
Discharge Date and Time
Discharge Date/Time: 09/26/24 13:53
Print Language: [place]IZ[place]
== END 2024-09-26 13:53 | disposition home health service (06) | DRG 871 ==
LOC: 3 WEST ACU 12:11
PROVIDERS: Radiology Vascular & Interventional Radiology; Registered Nurse; ADMITTING PHYSICIAN Hospitalist; ATTENDING PHYSICIAN Internal Medicine; CONSULT PHYSICIAN Internal Medicine Critical Care Medicine; CONSULT PHYSICIAN Internal Medicine Infectious Disease; EMERGENCY PHYSICIAN Emergency Medicine; FAMILY PHYSICIAN Family Medicine; OTHER PHYSICIAN Internal Medicine Hematology & Oncology
PROC: 0W9B3ZX Drainage of Left Pleural Cavity, Percutaneous Approach, Diagnostic (ICD-10-PCS; 2024-09-23)
DX: A41.9 Sepsis, unspecified organism (principal); J18.9 Pneumonia, unspecified organism; J96.21 Acute and chronic respiratory failure with hypoxia; C34.90 Malignant neoplasm of unspecified part of unspecified bronchus or lung; N17.9 Acute kidney failure, unspecified; D84.9 Immunodeficiency, unspecified; E87.1 Hypo-osmolality and hyponatremia; J91.0 Malignant pleural effusion; Z11.52 Encounter for screening for COVID-19; Z66 Do not resuscitate; Z87.891 Personal history of nicotine dependence; I10 Essential (primary) hypertension; K21.9 Gastro-esophageal reflux disease without esophagitis; F41.9 Anxiety disorder, unspecified; J20.9 Acute bronchitis, unspecified; B97.4 Respiratory syncytial virus as the cause of diseases classified elsewhere; J84.10 Pulmonary fibrosis, unspecified
CPT/HCPCS: 88305; 32555; 71045; 71046; 71275; 80048; 80053; 80202; 82150; 82945; 82962; 83605; 83615; 83735; 83880; 83986; 84155; 84157; 84478; 84484; 85014; 85025; 85027; 87015; 87040; 87070; 87102; 87116; 87205; 87449; 87502; 87633; 87811; 87899; 88112; 88341; 88342; 89051; 93005; 94640; 94669; 96361; 96365; 96375; 97162; 97167; 99285; Q9967

== ENCOUNTER → 2025-01-28 07:35 | Outpatient (REF) | payer MEDICARE, BC, SELFPAY | LOC: HWWDC 07:35 | PROVIDERS: ATTENDING PHYSICIAN Obstetrics & Gynecology; FAMILY PHYSICIAN Family Medicine | DX: Z12.31 Encounter for screening mammogram for malignant neoplasm of breast (principal) | CPT/HCPCS: 77063; 77067 ==

== ENCOUNTER → 2025-02-07 10:05 | Outpatient (REF) | payer MEDICARE, BC, SELFPAY | LOC: WDC 10:05 | PROVIDERS: ATTENDING PHYSICIAN Obstetrics & Gynecology; FAMILY PHYSICIAN Family Medicine | DX: R92.8 Other abnormal and inconclusive findings on diagnostic imaging of breast (principal) | CPT/HCPCS: 77065 ==